=== PATIENT | male | born 1980 | race American Indian/Alaskan Native ===

== ENCOUNTER 2019-03-25 13:50 | Inpatient (IN) | payer OTHER ==
--- NOTE | 2019-03-25 14:16 | Event Note ---
ED Screening Note Date of service: 03/25/19 Time: 14:08 ED Screening Note: Reports bilateral feet swelling with pain. Left worst than rt. Denies sob or cp. Travelled via plane to [facility]. Denies any medical problem. Denies gout. Rt foot greater than left foot. Drank all day wednesday Pain 10/10 and becomes more intense with movement. Took advil. Pain throbbing Temperature elevated and mild tacchycardia Cellulitis vs gout/dvt This initial assessment/diagnostic orders/clinical plan/treatment(s) is/are subject to change based on patients health status, clinical progression and re- assessment by fellow clinical providers in the ED. Further treatment and workup at subsequent clinical providers discretion. Patient/guardian urged not to elope from the ED as their condition may be serious if not clinically assessed and managed. Initial orders include: U/S
[2019-03-25] MEDS ORDERED: SODIUM CHLORIDE 0.9% 1000 ML IV SOLN IV ONE (14:25)
[2019-03-25] MEDS ORDERED: CLINDAMYCIN 600 MG/50 mL 600 MG/50 ML BAG IV ONE (14:27)
[2019-03-25] MEDS ORDERED: KETOROLAC 30 MG/1 ML INJ IV ONE (14:27)
[2019-03-25] MEDS ORDERED: MORPHINE 4 MG/1 ML INJ IV ONE (14:27)
--- NOTE | 2019-03-25 16:40 | Emergency Department Report ---
<DANIELLE BOB - Last Filed: 03/25/19 16:37> ED Extremity Problem HPI - General Chief complaint: Extremity Injury, Lower Stated complaint: BOTH FEET SWOLLEN Time Seen by Provider: 03/25/19 14:07 Source: patient Mode of arrival: Wheelchair Limitations: No Limitations - History of Present Illness Initial comments: Patient is a 39-year-old male with no significant past medical history who is complaining of bilateral foot and leg pain. Patient states that 2 weeks ago he was in [facility] and was doing great and walking with new shoes. One week ago he started having bilateral, left greater than right, foot pain. Patient states that the feet began to swell and the swelling on the right foot is localize however the swelling to the left foot now includes the left ankle and left calf. Patient states is no chest pain shortness of breath. He has had chills. Patient denies any trauma. Severity scale (0 -10): 7 - Related Data Home Medications Medication Instructions Recorded Confirmed Last Taken No Known Home Medications [No 03/26/19 03/26/19 Unknown Reported Home Medications] Allergies Allergy/AdvReac Type Severity Reaction Status Date / Time Penicillins Allergy Unknown Verified 03/25/19 13:55 ED Review of Systems Comment: All other systems reviewed and negative ED Past Medical Hx - Past Medical History Previous Medical History?: Yes Hx Hypertension: Yes (no meds) Additional medical history: MVP - Surgical History Past Surgical History?: No - Social History Smoking Status: Current Every Day Smoker Substance Use Type: Alcohol - Medications Home Medications: Home Medications Medication Instructions Recorded Confirmed Last Taken Type No Known Home Medications [No 03/26/19 03/26/19 Unknown History Reported Home Medications] ED Physical Exam - General Limitations: No Limitations General appearance: alert, in no apparent distress - Head Head exam: Present: atraumatic, normocephalic - Eye Eye exam: Present: normal appearance - ENT ENT exam: Present: mucous membranes moist - Neck Neck exam: Present: normal inspection - Respiratory Respiratory exam: Present: normal lung sounds bilaterally. Absent: respiratory distress, wheezes, rales, rhonchi - Cardiovascular Cardiovascular Exam: Present: normal rhythm, tachycardia, normal heart sounds. Absent: systolic murmur, diastolic murmur, rubs, gallop - GI/Abdominal GI/Abdominal exam: Present: soft, normal bowel sounds. Absent: distended, tenderness, guarding, rebound - Rectal Rectal exam: Present: deferred - Extremities Exam Extremities exam: Present: normal inspection, other (patient with bilateral foot swelling. The swelling to the right foot is local lysed only to the dorsum of the foot. The swelling to the left foot extends into the left ankle as well as the left calf. He can move his ankle however there is a great deal of pain. Of the right ankle has full range of motion. The erythema is associated with a great deal of warmth and tenderness to palpation. There are no areas of fluctuance present.) - Back Exam Back exam: Present: normal inspection - Neurological Exam Neurological exam: Present: alert, oriented X3 - Psychiatric Psychiatric exam: Present: normal affect, normal mood - Skin Skin exam: Present: warm, dry, intact, normal color. Absent: rash ED Course - Reevaluation(s) Reevaluation #1: 03/25/19 16:40 Patient had sepsis protocol however there was a significant delay with drawing the patient's labs as the cook cashier food prep wasn't single coverage and did not know this patient was a septic patient. ED Disposition Clinical Impression: Leg swelling Cellulitis Qualifiers: Site of cellulitis: extremity Site of cellulitis of extremity: lower extremity Laterality: unspecified laterality Qualified Code(s): L03.119 - Cellulitis of unspecified part of limb Disposition: OP ADMIT IP TO THIS HOSP Condition: Fair <ALBARO PENALOZA - Last Filed: 03/26/19 13:48> ED Review of Systems ROS: Stated complaint: BOTH FEET SWOLLEN Other details as noted in HPI ED Course Vital Signs 03/25/19 03/25/19 03/25/19 13:55 20:01 20:49 Temperature 100.4 F H 101.4 F H 102.4 F H Pulse Rate 105 H 91 H Respiratory 18 18 Rate Blood Pressure 117/76 Blood Pressure 139/79 [Right] O2 Sat by Pulse 97 99 Oximetry 03/25/19 21:54 Temperature 99.9 F H Pulse Rate 87 Respiratory 18 Rate Blood Pressure Blood Pressure 114/68 [Right] O2 Sat by Pulse 100 Oximetry - Consultations Consultation #1: 03/25/19 18:[address] Gonsalez, hospitalist who states that LUNA Silverman will evaluate the pt, Dr. Gonsalez will admit to hospital and accept and resume care of patient ED Medical Decision Making - Lab Data Result diagrams: 03/26/19 04:37 03/26/19 04:37 Lab Results 03/25/19 03/25/19 03/25/19 Range/Units 16:59 17:58 17:58 WBC 8.1 (4.5-11.0) K/mm3 RBC 3.35 L (3.65-5.03) M/mm3 Hgb 11.0 L (11.8-15.2) gm/dl Hct 32.2 L (35.5-45.6) % MCV 96 H (84-94) fl MCH 33 H (28-32) pg MCHC 34 (32-34) % RDW 14.2 (13.2-15.2) % Plt Count 211 (140-440) K/mm3 Lymph % (Auto) 8.2 L (13.4-35.0) % [place] % (Auto) 10.8 H (0.0-7.3) % Eos % (Auto) 1.1 (0.0-4.3) % Baso % (Auto) 0.2 (0.0-1.8) % Lymph # 0.7 L (1.2-5.4) K/mm3 [place] # 0.9 H (0.0-0.8) K/mm3 Eos # 0.1 (0.0-0.4) K/mm3 Baso # 0.0 (0.0-0.1) K/mm3 Seg Neutrophils % 79.7 H (40.0-70.0) % Seg Neutrophils # 6.4 (1.8-7.7) K/mm3 Sodium (137-145) mmol/L Potassium (3.6-5.0) mmol/L Chloride (98-107) mmol/L Carbon Dioxide (22-30) mmol/L Anion Gap mmol/L BUN (9-20) mg/dL Creatinine (0.8-1.5) mg/dL Estimated GFR ml/min BUN/Creatinine Ratio % Glucose (75-100) mg/dL Lactic Acid 1.80 (0.7-2.0) mmol/L Uric Acid 3.2 L (3.5-7.6) mg/dL Calcium (8.4-10.2) mg/dL Total Bilirubin (0.1-1.2) mg/dL AST (5-40) units/L ALT (7-56) units/L Alkaline Phosphatase (35-129) units/L Total Protein (6.3-8.2) g/dL Albumin (3.9-5) g/dL Albumin/Globulin Ratio % 03/25/19 03/25/19 Range/Units 17:58 17:58 WBC (4.5-11.0) K/mm3 RBC (3.65-5.03) M/mm3 Hgb (11.8-15.2) gm/dl Hct (35.5-45.6) % MCV (84-94) fl MCH (28-32) pg MCHC (32-34) % RDW (13.2-15.2) % Plt Count (140-440) K/mm3 Lymph % (Auto) (13.4-35.0) % [place] % (Auto) (0.0-7.3) % Eos % (Auto) (0.0-4.3) % Baso % (Auto) (0.0-1.8) % Lymph # (1.2-5.4) K/mm3 [place] # (0.0-0.8) K/mm3 Eos # (0.0-0.4) K/mm3 Baso # (0.0-0.1) K/mm3 Seg Neutrophils % (40.0-70.0) % Seg Neutrophils # (1.8-7.7) K/mm3 Sodium 135 L (137-145) mmol/L Potassium 3.8 (3.6-5.0) mmol/L Chloride 100.7 (98-107) mmol/L Carbon Dioxide 22 (22-30) mmol/L Anion Gap 16 mmol/L BUN 9 (9-20) mg/dL Creatinine 0.7 L (0.8-1.5) mg/dL Estimated GFR > 60 ml/min BUN/Creatinine Ratio 13 % Glucose 94 (75-100) mg/dL Lactic Acid 1.10 (0.7-2.0) mmol/L Uric Acid (3.5-7.6) mg/dL Calcium 8.6 (8.4-10.2) mg/dL Total Bilirubin 1.00 (0.1-1.2) mg/dL AST 12 (5-40) units/L ALT 5 L (7-56) units/L Alkaline Phosphatase 62 (35-129) units/L Total Protein 7.1 (6.3-8.2) g/dL Albumin 3.6 L (3.9-5) g/dL Albumin/Globulin Ratio 1.0 % - Radiology Data Radiology results: report reviewed DUPLEX DOPPLER LOWER EXTREMITY VEINS, BILATERAL INDICATION: Bilateral foot swelling, redness and pain 1 week. Bilateral leg swelling. TECHNIQUE: Duplex doppler imaging was performed through the veins of both lower extremities using venous compression and other maneuvers. COMPARISON: None available. FINDINGS: Right Common femoral vein: Negative. Right Superficial femoral vein: Negative. Right Popliteal vein: Negative. Right Calf veins: Negative. Left Common femoral vein: Negative. Left Superficial femoral vein: Negative. Left Popliteal vein: Negative. Left Calf veins: Negative. Additional findings: There is no evidence of a popliteal cyst or other signif icant abnormality. IMPRESSION: No sonographic evidence for DVT in either lower extremity. Signer Name: Oni Haas MD Signed: 03/25/2019 5:56 PM Workstation Name: [id number] Transcribed By: RT Dictated By: Oni Haas MD Electronically Authenticated By: Oni Haas MD Signed Date/Time: 03/25/19 0628 - Medical Decision Making s/o by Dr. Mauricio Bob pending US results and admission US shows: No sonographic evidence for DVT in either lower extremity. labs are stable pt given IV abx pt admitted due to cellulitis, LLE>RLE spoke with Dr. Gonsalez, hospitalist who states that LUNA Silverman will evaluate the pt, Dr. Gonsalez will admit to hospital and accept and resume care of patient pt admitted to the hospital - Differential Diagnosis cellulitis, DVT, kidney dysfunction, liver dysfunction Critical care attestation.: If time is entered above; I have spent that time in minutes in the direct care of this critically ill patient, excluding procedure time. ED Disposition Is pt being admited?: Yes Does the pt Need Aspirin: No
--- NOTE | 2019-03-25 18:00 | Vascular Lab Report ---
DUPLEX DOPPLER LOWER EXTREMITY VEINS, BILATERAL INDICATION: Bilateral foot swelling, redness and pain 1 week. Bilateral leg swelling. TECHNIQUE: Duplex doppler imaging was performed through the veins of both lower extremities using venous odalys dolores and other maneuvers. COMPARISON: None available. FINDINGS: Right Common femoral vein: Negative. Right Superficial femoral vein: Negative. Right Popliteal vein: Negative. Right Calf veins: Negative. Left Common femoral vein: Negative. Left Superficial femoral vein: Negative. Left Popliteal vein: Negative. Left Calf veins: Negative. Additional findings: There is no evidence of a popliteal cyst or other significant abnormality. IMPRESSION: No sonographic evidence for DVT in either lower extremity. Signer Name: Oni Haas MD Signed: 03/25/2019 5:56 PM Workstation Name: [id number]
[2019-03-25 18:11] LABS: Basophils % (Auto) 0.2 % (0.0-1.8); Eosinophils # (Auto) 0.1 K/mm3 (0.0-0.4); Eosinophils % (Auto) 1.1 % (0.0-4.3); Hematocrit 32.2 % (35.5-45.6); Lymphocytes # (Auto) 0.7 K/mm3 (1.2-5.4); Lymphocytes % (Auto) 8.2 % (13.4-35.0); Mean Corpuscular HGB Conc 34 % (32-34); Mean Corpuscular Volume 96 fl (84-94); Monocytes # (Auto) 0.9 K/mm3 (0.0-0.8); Monocytes % (Auto) 10.8 % (0.0-7.3); Platelet Count 211 K/mm3 (140-440); Red Blood Count 3.35 M/mm3 (3.65-5.03); Red Cell Distribution Width 14.2 % (13.2-15.2)
[2019-03-25 18:28] LABS: Alanine Aminotransferase 5 units/L (7-56); Albumin 3.6 g/dL (3.9-5); BUN/Creatinine Ratio 13; Blood Urea Nitrogen 9 mg/dL (9-20); Calcium 8.6 mg/dL (8.4-10.2); Hemolysis Index 0
[2019-03-25] MEDS ORDERED: SODIUM CHLORIDE 0.9% 1000 ML 1,000 ML ONE (19:56)
[2019-03-25] MEDS ORDERED: VANCOMYCIN 1,500 MG in SODIUM CHLORIDE 0.9% 500 ML 500 ML IV ONE (20:00)
[2019-03-25] MEDS ORDERED: VANCOMYCIN PHARMACY TO DOSE IV SCH (20:00)
[2019-03-25] MEDS ORDERED: SODIUM CHLORIDE 0.9% 1000 ML 1,000 ML IV ONE (20:10)
[2019-03-25] MEDS ORDERED: NICOTINE 14 MG/24 HR PATCH TD PRN (20:11)
[2019-03-25] MEDS: ACETAMINOPHEN 325 MG TAB PO PRN (20:14)
[2019-03-25] MEDS ORDERED: ACETAMINOPHEN 325 MG TAB ONE (20:14)
[2019-03-25 20:22] LABS: Bilirubin,Urine NEG (Negative); Blood,Urine NEG (Negative); Color,Urine Amber (Yellow); Mucus,Urine 3+ /HPF
--- NOTE | 2019-03-25 20:33 | History and Physical Report ---
History of Present Illness Date of examination: 03/25/19 Date of admission: 03/25/19 19:08 Chief complaint: BLE edema, pain and warmth History of present illness: 39 -year-old -[place] male who is an ongoing smoker with no significant past medical history who presents to [facility] ED with complaints of redness to bilateral lower extremity, swelling, and pain. She states that he wants on a short 2 day vacation to [facility] last weekend. He purchased a new pair of [place] tennis shoes and wore them for the entire trip. Upon returning home, pt started experiencing bilateral foot pain and noticed that his feet were swollen. As the week progressed the swelling move up to his calf on the left foot, and it was accompanied by warmth and erythema. Pt also had erythema to right fourth and third toe and mild edema to right foot. He denies bug/ insect bite. he denies getting in beach water, and states that he only walked on the sand with shoes on to take pictures. Denies: n/v/d, fever, headache, CP, or SOB Past History Past Medical History: No medical history Past Surgical History: No surgical history Social history: lives with family (lives with parents), smoking (smokes 4-5 cigarettes per day) Family history: no significant family history Medications and Allergies Allergies Allergy/AdvReac Type Severity Reaction Status Date / Time Penicillins Allergy Unknown Verified 03/25/19 13:55 Active Meds: Active Medications Acetaminophen (Tylenol) 650 mg PO Q4H PRN PRN Reason: Pain MILD(1-3)/Fever >100.5/RODRIGUES Last Admin: 03/25/19 20:14 Dose: 650 mg Documented by: Acetaminophen/Hydrocodone Bitart ([place] 5/325) 2 each PO Q6H PRN PRN Reason: Pain, Moderate (4-6) Docusate Sodium (Colace) 100 mg PO BID ELKIN Enoxaparin Sodium (Enoxaparin) 40 mg SUB-Q QDAY ELKIN Hydromorphone HCl (Dilaudid) 0.5 mg IV Q3H PRN PRN Reason: Pain , Severe (7-10) Clindamycin HCl (Cleocin 600 Mg/50 Ml) 600 mg in 50 mls @ 100 mls/hr IV Q8HR ELKIN; Protocol Vancomycin HCl 1,500 mg/ (Sodium Chloride) 530 mls @ 353.333 mls/hr IV ONCE ONE Stop: 03/25/19 21:29 Vancomycin HCl (Vancomycin/Ns 1 Gm/250 Ml) 1 gm in 250 mls @ 166.667 mls/hr IV Q8HR ELKIN Sodium Chloride (Nacl 0.9% 1000 Ml) 1,000 mls @ 999 mls/hr IV BOLUS ONE Stop: 03/25/19 21:10 Last Admin: 03/25/19 20:17 Dose: 999 mls/hr Documented by: Nicotine (Habitrol) 14 mg TD QDAY PRN PRN Reason: smoking cessation Ondansetron HCl (Zofran) 4 mg IV Q6H PRN PRN Reason: Nausea And Vomiting Sodium Chloride (Sodium Chloride Flush Syringe 10 Ml) 10 ml IV BID ELKIN Sodium Chloride (Sodium Chloride Flush Syringe 10 Ml) 10 ml IV PRN PRN PRN Reason: LINE FLUSH Review of Systems All systems: negative Musculoskeletal: other (BLE edema L>R, Pain with activity and deep palpation) Integumentary: other (erythema and warmth to left foot and calf, erythema to right fourth and fifth toe, edema to right foot) Exam - Physical Exam Narrative exam: General appearance: Present: No acute distress, awake, alert and oriented 3, pleasant, well-developed, adult male - EENT Eyes: Present: PERRL, EOM intact ENT: hearing intact, normal dentition - Neck Neck: Present: supple, normal ROM - Respiratory Respiratory effort: Non-laboredwith diminished bases bilaterally - Cardiovascular Heart rate:105 (bpm) Rhythm:ST Heart Sounds: Present: S1, S2. - Extremities Extremities: no ischemia, pulses intact, erythema to right fourth fifth toe, erythema and edema to left calf and left foot - Peripheral Assessment Peripheral Pulses: within normal limits - Abdominal General gastrointestinal: soft, non-tender, normal bowel sounds, - Integumentary Integumentary: Present: warm, dry - Musculoskeletal Musculoskeletal: able to move all extremities, limited arm to bilateral lower extremity due to pain and swelling -Neurological Neurological: CN II-XII grossly intact - Psychiatric Psychiatric: cooperative - Constitutional Vitals: Temp Pulse Resp BP Pulse Ox 101.4 F H 91 H 18 139/79 99 03/25/19 20:01 03/25/19 20:01 03/25/19 20:01 03/25/19 20:01 03/25/19 20:01 Results - Labs CBC & Chem 7: 03/25/19 17:58 03/25/19 17:58 Labs: Laboratory Last Values WBC 8.1 K/mm3 (4.5-11.0) 03/25/19 17:58 RBC 3.35 M/mm3 (3.65-5.03) L 03/25/19 17:58 Hgb 11.0 gm/dl (11.8-15.2) L 03/25/19 17:58 Hct 32.2 % (35.5-45.6) L 03/25/19 17:58 MCV 96 fl (84-94) H 03/25/19 17:58 MCH 33 pg (28-32) H 03/25/19 17:58 MCHC 34 % (32-34) 03/25/19 17:58 RDW 14.2 % (13.2-15.2) 03/25/19 17:58 Plt Count 211 K/mm3 (140-440) 03/25/19 17:58 Lymph % (Auto) 8.2 % (13.4-35.0) L 03/25/19 17:58 [place] % (Auto) 10.8 % (0.0-7.3) H 03/25/19 17:58 Eos % (Auto) 1.1 % (0.0-4.3) 03/25/19 17:58 Baso % (Auto) 0.2 % (0.0-1.8) 03/25/19 17:58 Lymph # 0.7 K/mm3 (1.2-5.4) L 03/25/19 17:58 [place] # 0.9 K/mm3 (0.0-0.8) H 03/25/19 17:58 Eos # 0.1 K/mm3 (0.0-0.4) 03/25/19 17:58 Baso # 0.0 K/mm3 (0.0-0.1) 03/25/19 17:58 Seg Neutrophils % 79.7 % (40.0-70.0) H 03/25/19 17:58 Seg Neutrophils # 6.4 K/mm3 (1.8-7.7) 03/25/19 17:58 Sodium 135 mmol/L (137-145) L 03/25/19 17:58 Potassium 3.8 mmol/L (3.6-5.0) 03/25/19 17:58 Chloride 100.7 mmol/L (98-107) 03/25/19 17:58 Carbon Dioxide 22 mmol/L (22-30) 03/25/19 17:58 Anion Gap 16 mmol/L 03/25/19 17:58 BUN 9 mg/dL (9-20) 03/25/19 17:58 Creatinine 0.7 mg/dL (0.8-1.5) L 03/25/19 17:58 Estimated GFR > 60 ml/min 03/25/19 17:58 BUN/Creatinine Ratio 13 % 03/25/19 17:58 Glucose 94 mg/dL (75-100) 03/25/19 17:58 Lactic Acid 1.10 mmol/L (0.7-2.0) 03/25/19 17:58 Uric Acid 3.2 mg/dL (3.5-7.6) L 03/25/19 17:58 Calcium 8.6 mg/dL (8.4-10.2) 03/25/19 17:58 Total Bilirubin 1.00 mg/dL (0.1-1.2) 03/25/19 17:58 AST 12 units/L (5-40) 03/25/19 17:58 ALT 5 units/L (7-56) L 03/25/19 17:58 Alkaline Phosphatase 62 units/L (35-129) 03/25/19 17:58 Total Protein 7.1 g/dL (6.3-8.2) 03/25/19 17:58 Albumin 3.6 g/dL (3.9-5) L 03/25/19 17:58 Albumin/Globulin Ratio 1.0 % 03/25/19 17:58 Urine Color [place] (Yellow) 03/25/19 20:13 Urine Turbidity Slightly-cloudy (Clear) 03/25/19 20:13 Urine pH 5.0 (5.0-7.0) 03/25/19 20:13 Ur Specific [place] 1.020 (1.003-1.030) 03/25/19 20:13 Urine Protein 100 mg/dl mg/dL (Negative) 03/25/19 20:13 Urine Glucose (UA) Neg mg/dL (Negative) 03/25/19 20:13 Urine Ketones 20 mg/dL (Negative) 03/25/19 20:13 Urine Blood Neg (Negative) 03/25/19 20:13 Urine Nitrite Neg (Negative) 03/25/19 20:13 Urine Bilirubin Neg (Negative) 03/25/19 20:13 Urine Urobilinogen 2.0 mg/dL (<2.0) 03/25/19 20:13 Ur Leukocyte Esterase Tr (Negative) 03/25/19 20:13 Urine WBC (Auto) 30.0 /HPF (0.0-6.0) H 03/25/19 20:13 Urine RBC (Auto) 5.0 /HPF (0.0-6.0) 03/25/19 20:13 U Epithel Cells (Auto) < 1.0 /HPF (0-13.0) 03/25/19 20:13 Urine Mucus 3+ /HPF 03/25/19 20:13 - Imaging and Cardiology Imaging and Cardiology: BLE Venous Duplex: IMPRESSION: No sonographic evidence for DVT in either lower extremity. Assessment and Plan Assessment and plan: 39 -year-old -Sy[place] male who is an ongoing smoker with no significant past medical history who presents to [facility] ED with complaints of progressively worsening redness to bilateral lower extremity, swelling, and pain for the past week. Bilateral lower extremity cellulitis -Bilateral lower extremity Doppler negative -Bilateral lower extremity edema, erythema and warmth L>R -Denies bug/insect bite -C/o pain with activity -Cultures pending -On IV ABX -ID consulted UTI -Urine WBC >30 -Urine culture pending -On IV Abx Anemia -Hemoglobin on admission 11.0 -No S/S of active bleeding -Continue to monitor hemoglobin -Transfuse as needed Tobacco abuse -Smokes 4-5 cigarettes per day for the past 20 years -Counseled for cessation -Nicotine patch when necessary DVT PPX -On Lovenox Advance Directives: No VTE prophylaxis?: Chemical Plan of care discussed with patient/family: Yes
[2019-03-25] MEDS ORDERED: IBUPROFEN 800 MG TAB ONE (20:54)
[2019-03-25] MEDS ORDERED: IBUPROFEN 800 MG TAB PO ONE (20:55)
[2019-03-25] MEDS ORDERED: CLINDAMYCIN 600 MG/50 mL 600 MG/50 ML BAG IV SCH (22:00)
[2019-03-25] MEDS ORDERED: DOCUSATE SODIUM 100 MG CAP PO SCH (22:00)
[2019-03-25] MEDS: DOCUSATE SODIUM 100 MG CAP PO SCH (23:11)
[2019-03-25] MEDS: cefTRIAXone/NS 1 GM/50 ML 1 GM/50 ML BAG IV SCH (23:57)
[2019-03-26 05:02] LABS: BUN/Creatinine Ratio 15; Blood Urea Nitrogen 9 mg/dL (9-20); Calcium 8.3 mg/dL (8.4-10.2); Hemolysis Index 2
[2019-03-26 05:15] LABS: Basophils # (Auto) 0.1 K/mm3 (0.0-0.1); Basophils % (Auto) 0.7 % (0.0-1.8); Eosinophils # (Auto) 0.3 K/mm3 (0.0-0.4); Eosinophils % (Auto) 4.2 % (0.0-4.3); Hemoglobin 9.9 gm/dl (11.8-15.2); Lymphocytes % (Auto) 13.8 % (13.4-35.0); Mean Corpuscular HGB Conc 34 % (32-34); Mean Corpuscular Volume 95 fl (84-94); Monocytes # (Auto) 0.8 K/mm3 (0.0-0.8); Monocytes % (Auto) 11.4 % (0.0-7.3); Platelet Count 221 K/mm3 (140-440); Red Blood Count 3.04 M/mm3 (3.65-5.03); Red Cell Distribution Width 14.3 % (13.2-15.2)
[2019-03-26] MEDS: VANCOMYCIN/NS 1 GM/250 ML 1 GM/250 ML BAG IV SCH ×3 (05:48→22:03)
[2019-03-26] MEDS: HYDROcodone/ACETAMINOPHEN 5-325 MG TAB PO PRN ×3 (05:48→19:32)
--- NOTE | 2019-03-26 07:45 | Progress Note ---
Assessment and Plan Assessment and plan: Patient is a 39 -year-old -Togol[place] male who is an ongoing smoker with no significant past medical history who presents to [facility] ED with complaints of progressively worsening redness to bilateral lower extremity, swelling, and pain for the past week. He went on a short 2 day vacation to [place], [place] last weekend. He purchased a new pair of [employer] tennis shoes and wore them for the entire trip. Upon returning home, he developed bilateral foot pain and swelling. Bilateral lower extremity cellulitis -Bilateral lower extremity Doppler negative for DVT -Bilateral lower extremity edema, erythema and warmth L>R -Denies bug/insect bite -C/o pain with activity -Cultures pending -On IV ABX -ID consulted UTI -Urine WBC >30 -Urine culture pending -On IV Abx Anemia -Macrocytic -Hemoglobin on admission 11.0 -No S/S of active bleeding -Continue to monitor hemoglobin -Transfuse as needed Tobacco abuse -Smokes 4-5 cigarettes per day for the past 20 years -Counseled for cessation -Nicotine patch when necessary DVT PPX -On Lovenox History Interval history: Patient was seen and examined. Follow-up on current diagnosis of ble cellulitis. Overnight uneventful. Patient denies any chest pain, shortness breath, nausea/vomiting or severe headaches. Imaging, nursing note, chart, labs and old chart reviewed. Discussed with patient. Hospitalist Physical - Physical exam Narrative exam: Gen: WDWN, NAD, Awake, Alert, Orientated HEENT: NCAT, EOMI, PERRL, OP Clear Neck: supple, no adenopathy, no thyromegaly, no JVD CVS/Heart: RRR, normal S1S2, pulses present bilaterally Chest/Lungs: CTA B, Symmetrical chest expansion, good air entry bilaterally GI/Abdomen: soft, NTND, good bowel sounds, no guarding or rebound /Bladder: no suprapubic tenderness, no CVA or paraspinal tenderness Extermity/Skin: ble edema MSK: FROM x 4 Neuro: CN 2-12 grossly intact, no new focal deficits Psych: calm - Constitutional Vitals: Temp Pulse Resp BP Pulse Ox 98.9 F 76 16 113/74 98 03/26/19 05:06 03/26/19 05:06 03/26/19 06:48 03/26/19 05:06 03/26/19 05:06 Results - Labs CBC & Chem 7: 03/26/19 04:37 03/26/19 04:37 Labs: Laboratory Last Values WBC 7.4 K/mm3 (4.5-11.0) 03/26/19 04:37 RBC 3.04 M/mm3 (3.65-5.03) L 03/26/19 04:37 Hgb 9.9 gm/dl (11.8-15.2) L 03/26/19 04:37 Hct 29.0 % (35.5-45.6) L 03/26/19 04:37 MCV 95 fl (84-94) H 03/26/19 04:37 MCH 33 pg (28-32) H 03/26/19 04:37 MCHC 34 % (32-34) 03/26/19 04:37 RDW 14.3 % (13.2-15.2) 03/26/19 04:37 Plt Count 221 K/mm3 (140-440) 03/26/19 04:37 Lymph % (Auto) 13.8 % (13.4-35.0) 03/26/19 04:37 [place] % (Auto) 11.4 % (0.0-7.3) H 03/26/19 04:37 Eos % (Auto) 4.2 % (0.0-4.3) 03/26/19 04:37 Baso % (Auto) 0.7 % (0.0-1.8) 03/26/19 04:37 Lymph # 1.0 K/mm3 (1.2-5.4) L 03/26/19 04:37 [place] # 0.8 K/mm3 (0.0-0.8) 03/26/19 04:37 Eos # 0.3 K/mm3 (0.0-0.4) 03/26/19 04:37 Baso # 0.1 K/mm3 (0.0-0.1) 03/26/19 04:37 Seg Neutrophils % 69.9 % (40.0-70.0) 03/26/19 04:37 Seg Neutrophils # 5.2 K/mm3 (1.8-7.7) 03/26/19 04:37 Sodium 137 mmol/L (137-145) 03/26/19 04:37 Potassium 3.6 mmol/L (3.6-5.0) 03/26/19 04:37 Chloride 106.0 mmol/L (98-107) 03/26/19 04:37 Carbon Dioxide 24 mmol/L (22-30) 03/26/19 04:37 Anion Gap 11 mmol/L 03/26/19 04:37 BUN 9 mg/dL (9-20) 03/26/19 04:37 Creatinine 0.6 mg/dL (0.8-1.5) L 03/26/19 04:37 Estimated GFR > 60 ml/min 03/26/19 04:37 BUN/Creatinine Ratio 15 % 03/26/19 04:37 Glucose 109 mg/dL (75-100) H 03/26/19 04:37 Lactic Acid 0.70 mmol/L (0.7-2.0) 03/25/19 21:19 Uric Acid 3.2 mg/dL (3.5-7.6) L 03/25/19 17:58 Calcium 8.3 mg/dL (8.4-10.2) L 03/26/19 04:37 Total Bilirubin 1.00 mg/dL (0.1-1.2) 03/25/19 17:58 AST 12 units/L (5-40) 03/25/19 17:58 ALT 5 units/L (7-56) L 03/25/19 17:58 Alkaline Phosphatase 62 units/L (35-129) 03/25/19 17:58 Total Protein 7.1 g/dL (6.3-8.2) 03/25/19 17:58 Albumin 3.6 g/dL (3.9-5) L 03/25/19 17:58 Albumin/Globulin Ratio 1.0 % 03/25/19 17:58 Urine Color [place]indi (Yellow) 03/25/19 20:13 Urine Turbidity Slightly-cloudy (Clear) 03/25/19 20:13 Urine pH 5.0 (5.0-7.0) 03/25/19 20:13 Ur Specific [place] 1.020 (1.003-1.030) 03/25/19 20:13 Urine Protein 100 mg/dl mg/dL (Negative) 03/25/19 20:13 Urine Glucose (UA) Neg mg/dL (Negative) 03/25/19 20:13 Urine Ketones 20 mg/dL (Negative) 03/25/19 20:13 Urine Blood Neg (Negative) 03/25/19 20:13 Urine Nitrite Neg (Negative) 03/25/19 20:13 Urine Bilirubin Neg (Negative) 03/25/19 20:13 Urine Urobilinogen 2.0 mg/dL (<2.0) 03/25/19 20:13 Ur Leukocyte Esterase Tr (Negative) 03/25/19 20:13 Urine WBC (Auto) 30.0 /HPF (0.0-6.0) H 03/25/19 20:13 Urine RBC (Auto) 5.0 /HPF (0.0-6.0) 03/25/19 20:13 U Epithel Cells (Auto) < 1.0 /HPF (0-13.0) 03/25/19 20:13 Urine Mucus 3+ /HPF 03/25/19 20:13 Active Medications - Current Medications Current Medications: Generic Name Dose Route Start Last Admin Trade Name Freq PRN Reason Stop Dose Admin Acetaminophen 650 mg 03/25/19 19:33 03/25/19 20:14 Tylenol PO 650 mg Q4H PRN Administration Pain MILD(1-3)/Fever >100.5/RODRIGUES Acetaminophen/Hydrocodone Bitart 2 each 03/25/19 19:33 03/26/19 05:48 [place] 5/325 PO 2 each Q6H PRN Administration Pain, Moderate (4-6) Docusate Sodium 100 mg 03/25/19 22:00 03/25/19 23:11 Colace PO 100 mg BID ELKIN Administration Enoxaparin Sodium 40 mg 03/26/19 10:00 Enoxaparin SUB-Q QDAY ELKIN Hydromorphone HCl 0.5 mg 03/25/19 19:33 Dilaudid IV Q3H PRN Pain , Severe (7-10) Vancomycin HCl 1 gm in 250 mls @ 166.667 mls/hr 03/26/19 06:00 03/26/19 05:48 Vancomycin/Ns 1 Gm/250 Ml IV 166.667 mls/hr Q8HR ELKIN Administration Ceftriaxone Sodium 1 gm in 50 mls @ 100 mls/hr 03/25/19 22:00 03/25/19 23:57 Rocephin/Ns 1 Gm/50 Ml IV 100 mls/hr Q24H ELKIN Administration Protocol Nicotine 14 mg 03/25/19 20:11 Habitrol TD QDAY PRN smoking cessation Ondansetron HCl 4 mg 03/25/19 19:33 Zofran IV Q6H PRN Nausea And Vomiting Sodium Chloride 10 ml 03/25/19 22:00 03/25/19 23:11 Sodium Chloride Flush Syringe 10 Ml IV 10 ml BID ELKIN Administration Sodium Chloride 10 ml 03/25/19 19:33 Sodium Chloride Flush Syringe 10 Ml IV PRN PRN LINE FLUSH
--- NOTE | 2019-03-26 09:26 | XRay Report ---
LEFT FOOT 3 VIEWS INDICATION / CLINICAL INFORMATION: Left foot pain. COMPARISON: None available. FINDINGS: BONES / JOINT(S): There are mild degenerative changes involving the first metatarsophalangeal joint. There is no evidence of fracture, dislocation or destructive lesion. SOFT TISSUES: No significant abnormality. ADDITIONAL FINDINGS: None. IMPRESSION: No acute abnormality. Signer Name: Oni Haas MD Signed: 03/26/2019 9:22 AM Workstation Name: [id number]
--- NOTE | 2019-03-26 09:27 | XRay Report ---
LEFT ANKLE 3 VIEWS INDICATION / CLINICAL INFORMATION: Left ankle pain. COMPARISON: None available. FINDINGS: BONES / JOINT(S): No acute fracture or subluxation. No significant arthritis. SOFT TISSUES: There is moderate generalized soft tissue swelling, most prominent overlying the latera l malleolus. ADDITIONAL FINDINGS: None. IMPRESSION: Moderate soft tissue swelling, most prominent overlying the lateral malleolus. No acute o sseous abnormality. Signer Name: Oni Haas MD Signed: 03/26/2019 9:23 AM Workstation Name: [id number]
[2019-03-26] MEDS: ENOXAPARIN 40 MG/0.4 ML INJ SUB-Q SCH (10:05)
[2019-03-26] MEDS: DOCUSATE SODIUM 100 MG CAP PO SCH ×3 (10:05→22:03)
[2019-03-26] MEDS: ACETAMINOPHEN 325 MG TAB PO PRN ×2 (17:38→23:05)
[2019-03-26] MEDS: cefTRIAXone/NS 1 GM/50 ML 1 GM/50 ML BAG IV SCH (22:03)
[2019-03-27] MEDS: HYDROmorphone 1 MG/1 ML INJ IV PRN ×2 (00:43→06:33)
[2019-03-27] MEDS: ONDANSETRON 4 MG/2 ML INJ IV PRN ×2 (00:43→10:35)
[2019-03-27] MEDS: VANCOMYCIN/NS 1 GM/250 ML 1 GM/250 ML BAG IV SCH ×3 (05:59→21:26)
--- NOTE | 2019-03-27 06:55 | Progress Note ---
Assessment and Plan Assessment and plan: Patient is a 39 -year-old -[place] man with a history of tobacco dependency who [facility] with severe bilateral foot pains and swelling, especially left foot. He went on a short 2 day vacation to [place], [place] last weekend. He purchased a new pair of Nike tennis shoes and wore them for the entire trip. Upon returning home, he developed bilateral foot pain and swelling. Bilateral lower extremity cellulitis -Bilateral lower extremity Doppler negative for DVT -XRay ankle and foot negative for fracture -Bilateral lower extremity edema, erythema and warmth L foot >R foot -Denies bug/insect bite -C/o pain with activity -Cultures pending -On IV ABX -ID consulted, await evaluation and recommendation -?Disseminated migratory arthralgia, he denies penile lesion or discharge. UTI -Urine WBC >30 -Urine culture pending -On IV Abx Anemia -Macrocytic -Hemoglobin on admission 11.0 -No S/S of active bleeding -Continue to monitor hemoglobin -Transfuse as needed Tobacco abuse -Smokes 4-5 cigarettes per day for the past 20 years -Counseled for cessation -Nicotine patch when necessary DVT PPX -On Lovenox D/W ID Dr. Jeri Mcmillan History Interval history: Patient was seen and examined. Follow-up on current diagnosis of ble cellulitis, especially left foot. Overnight uneventful except for FEVER. Patient denies any chest pain, shortness breath, nausea/vomiting or severe headaches. Imaging, nursing note, chart, labs and old chart reviewed. Discussed with patient. Hospitalist Physical - Physical exam Narrative exam: Gen: WDWN, NAD, Awake, Alert, Orientated HEENT: NCAT, EOMI, PERRL, OP Clear Neck: supple, no adenopathy, no thyromegaly, no JVD CVS/Heart: RRR, normal S1S2, pulses present bilaterally Chest/Lungs: CTA B, Symmetrical chest expansion, good air entry bilaterally GI/Abdomen: soft, NTND, good bowel sounds, no guarding or rebound /Bladder: no suprapubic tenderness, no CVA or paraspinal tenderness Extermity/Skin: ble edema, left foot near 5th digit is red, lateral ankle has erythema, redness, warmth and tenderness also. left index finger is sausage like, right foot is swollen but not as bad as left MSK: FROM x 4 Neuro: CN 2-12 grossly intact, no new focal deficits Psych: calm - Constitutional Vitals: Temp Pulse Resp BP Pulse Ox 98.7 F 79 17 113/73 97 03/27/19 04:37 03/27/19 04:37 03/27/19 06:33 03/27/19 04:37 03/27/19 04:37 Results - Labs CBC & Chem 7: 03/26/19 04:37 03/26/19 04:37 Labs: Laboratory Last Values WBC 7.4 K/mm3 (4.5-11.0) 03/26/19 04:37 RBC 3.04 M/mm3 (3.65-5.03) L 03/26/19 04:37 Hgb 9.9 gm/dl (11.8-15.2) L 03/26/19 04:37 Hct 29.0 % (35.5-45.6) L 03/26/19 04:37 MCV 95 fl (84-94) H 03/26/19 04:37 MCH 33 pg (28-32) H 03/26/19 04:37 MCHC 34 % (32-34) 03/26/19 04:37 RDW 14.3 % (13.2-15.2) 03/26/19 04:37 Plt Count 221 K/mm3 (140-440) 03/26/19 04:37 Lymph % (Auto) 13.8 % (13.4-35.0) 03/26/19 04:37 [place] % (Auto) 11.4 % (0.0-7.3) H 03/26/19 04:37 Eos % (Auto) 4.2 % (0.0-4.3) 03/26/19 04:37 Baso % (Auto) 0.7 % (0.0-1.8) 03/26/19 04:37 Lymph # 1.0 K/mm3 (1.2-5.4) L 03/26/19 04:37 [place] # 0.8 K/mm3 (0.0-0.8) 03/26/19 04:37 Eos # 0.3 K/mm3 (0.0-0.4) 03/26/19 04:37 Baso # 0.1 K/mm3 (0.0-0.1) 03/26/19 04:37 Seg Neutrophils % 69.9 % (40.0-70.0) 03/26/19 04:37 Seg Neutrophils # 5.2 K/mm3 (1.8-7.7) 03/26/19 04:37 Sodium 137 mmol/L (137-145) 03/26/19 04:37 Potassium 3.6 mmol/L (3.6-5.0) 03/26/19 04:37 Chloride 106.0 mmol/L (98-107) 03/26/19 04:37 Carbon Dioxide 24 mmol/L (22-30) 03/26/19 04:37 Anion Gap 11 mmol/L 03/26/19 04:37 BUN 9 mg/dL (9-20) 03/26/19 04:37 Creatinine 0.6 mg/dL (0.8-1.5) L 03/26/19 04:37 Estimated GFR > 60 ml/min 03/26/19 04:37 BUN/Creatinine Ratio 15 % 03/26/19 04:37 Glucose 109 mg/dL (75-100) H 03/26/19 04:37 Lactic Acid 0.70 mmol/L (0.7-2.0) 03/25/19 21:19 Uric Acid 3.2 mg/dL (3.5-7.6) L 03/25/19 17:58 Calcium 8.3 mg/dL (8.4-10.2) L 03/26/19 04:37 Total Bilirubin 1.00 mg/dL (0.1-1.2) 03/25/19 17:58 AST 12 units/L (5-40) 03/25/19 17:58 ALT 5 units/L (7-56) L 03/25/19 17:58 Alkaline Phosphatase 62 units/L (35-129) 03/25/19 17:58 Total Protein 7.1 g/dL (6.3-8.2) 03/25/19 17:58 Albumin 3.6 g/dL (3.9-5) L 03/25/19 17:58 Albumin/Globulin Ratio 1.0 % 03/25/19 17:58 Urine Color [place]indi (Yellow) 03/25/19 20:13 Urine Turbidity Slightly-cloudy (Clear) 03/25/19 20:13 Urine pH 5.0 (5.0-7.0) 03/25/19 20:13 Ur Specific [place] 1.020 (1.003-1.030) 03/25/19 20:13 Urine Protein 100 mg/dl mg/dL (Negative) 03/25/19 20:13 Urine Glucose (UA) Neg mg/dL (Negative) 03/25/19 20:13 Urine Ketones 20 mg/dL (Negative) 03/25/19 20:13 Urine Blood Neg (Negative) 03/25/19 20:13 Urine Nitrite Neg (Negative) 03/25/19 20:13 Urine Bilirubin Neg (Negative) 03/25/19 20:13 Urine Urobilinogen 2.0 mg/dL (<2.0) 03/25/19 20:13 Ur Leukocyte Esterase Tr (Negative) 03/25/19 20:13 Urine WBC (Auto) 30.0 /HPF (0.0-6.0) H 03/25/19 20:13 Urine RBC (Auto) 5.0 /HPF (0.0-6.0) 03/25/19 20:13 U Epithel Cells (Auto) < 1.0 /HPF (0-13.0) 03/25/19 20:13 Urine Mucus 3+ /HPF 03/25/19 20:13 Active Medications - Current Medications Current Medications: Generic Name Dose Route Start Last Admin Trade Name Freq PRN Reason Stop Dose Admin Acetaminophen 650 mg 03/25/19 19:33 03/26/19 23:05 Tylenol PO 650 mg Q4H PRN Administration Pain MILD(1-3)/Fever >100.5/RODRIGUES Acetaminophen/Hydrocodone Bitart 2 each 03/25/19 19:33 03/26/19 19:32 [place] 5/325 PO 2 each Q6H PRN Administration Pain, Moderate (4-6) Docusate Sodium 100 mg 03/25/19 22:00 03/26/19 22:03 Colace PO 100 mg BID ELKIN Administration Enoxaparin Sodium 40 mg 03/26/19 10:00 03/26/19 10:05 Enoxaparin SUB-Q 40 mg QDAY ELKIN Administration Hydromorphone HCl 0.5 mg 03/25/19 19:33 03/27/19 06:33 Dilaudid IV 0.5 mg Q3H PRN Administration Pain , Severe (7-10) Vancomycin HCl 1 gm in 250 mls @ 166.667 mls/hr 03/26/19 06:00 03/27/19 05:59 Vancomycin/Ns 1 Gm/250 Ml IV 166.667 mls/hr Q8HR ELKIN Administration Ceftriaxone Sodium 1 gm in 50 mls @ 100 mls/hr 03/25/19 22:00 03/26/19 22:03 Rocephin/Ns 1 Gm/50 Ml IV 100 mls/hr Q24H ELKIN Administration Protocol Nicotine 14 mg 03/25/19 20:11 Habitrol TD QDAY PRN smoking cessation Ondansetron HCl 4 mg 03/25/19 19:33 03/27/19 00:43 Zofran IV 4 mg Q6H PRN Administration Nausea And Vomiting Sodium Chloride 10 ml 03/25/19 22:00 03/26/19 22:03 Sodium Chloride Flush Syringe 10 Ml IV 10 ml BID ELKIN Administration Sodium Chloride 10 ml 03/25/19 19:33 Sodium Chloride Flush Syringe 10 Ml IV PRN PRN LINE FLUSH
[2019-03-27] MEDS: HYDROcodone/ACETAMINOPHEN 5-325 MG TAB PO PRN (09:09)
[2019-03-27] MEDS: ENOXAPARIN 40 MG/0.4 ML INJ SUB-Q SCH (09:12)
[2019-03-27] MEDS: DOCUSATE SODIUM 100 MG CAP PO SCH ×2 (09:14→21:21)
--- NOTE | 2019-03-27 14:01 | Consultation ---
History of Present Illness - Reason for Consult Consult date: 03/27/19 - History of Present Illness 39 yo M no PMHx presented with complaints of bilateral LE swelling, pain, and redness which began after travelling to [place] last weekend. After returning home from the short trip he noticed his current symptoms with pain and swelling. Over time his symptoms did not improve, and the swelling progressed and began to affect his L calf. He notes that while in [facility] he did not get in the ocean, but did walk on the sand. Denies any bug bites in the meantime. Otherwise he denies fevers, sweats, chills. Febrile on admission to 102.1 with a normal white count. He is currently receiving vancomycin and ceftriaxone. Blood cultures and urine cultures are negative thus far. Roxanne personally reviewed: Foot xray - No acute abnormality Ankle x-ray - soft tissue swelling over the malleolus. Review of Systems: Bold if positive; otherwise negative General: fevers, chills, rigors HEENT: visual disturbance, diplopia, eye pain Respiratory: cough, sputum, hemoptysis, shortness of breath Cardiovascular: chest pain, syncope Gastrointestinal: nausea, vomiting, diarrhea, abdominal pain Genitourinary: dysuria, hematuria, flank pain Musculoskeletal: neck pain, back pain, joint pain, edema Neurologic: headaches, seizures Hematologic: easy bruising or bleeding Endocrine: night sweats, acute weight loss Skin: rash, jaundice, redness Psychiatric: suicidal, homicidal ideation Past History Past Medical History: No medical history Past Surgical History: No surgical history Social history: lives with family (lives with parents), smoking (smokes 4-5 cigarettes per day) Family history: no significant family history Medications and Allergies Allergies Allergy/AdvReac Type Severity Reaction Status Date / Time Penicillins Allergy Unknown Verified 03/25/19 13:55 Home Medications Medication Instructions Recorded Confirmed Last Taken Type No Known Home Medications [No 03/26/19 03/26/19 Unknown History Reported Home Medications] Active Meds: Active Medications Acetaminophen (Tylenol) 650 mg PO Q4H PRN PRN Reason: Pain MILD(1-3)/Fever >100.5/RODRIGUES Last Admin: 03/26/19 23:05 Dose: 650 mg Documented by: Acetaminophen/Hydrocodone Bitart ([place] 5/325) 2 each PO Q6H PRN PRN Reason: Pain, Moderate (4-6) Last Admin: 03/27/19 09:09 Dose: 2 each Documented by: Docusate Sodium (Colace) 100 mg PO BID [facility] Last Admin: 03/27/19 09:14 Dose: Not Given Documented by: Enoxaparin Sodium (Enoxaparin) 40 mg SUB-Q QDAY [facility] Last Admin: 03/27/19 09:12 Dose: 40 mg Documented by: Hydromorphone HCl (Dilaudid) 0.5 mg IV Q3H PRN PRN Reason: Pain , Severe (7-10) Last Admin: 03/27/19 06:33 Dose: 0.5 mg Documented by: Vancomycin HCl (Vancomycin/Ns 1 Gm/250 Ml) 1 gm in 250 mls @ 166.667 mls/hr IV Q8HR [facility] Last Admin: 03/27/19 05:59 Dose: 166.667 mls/hr Documented by: Ceftriaxone Sodium (Rocephin/Ns 1 Gm/50 Ml) 1 gm in 50 mls @ 100 mls/hr IV Q24H [facility]; Protocol Last Admin: 03/26/19 22:03 Dose: 100 mls/hr Documented by: Nicotine (Habitrol) 14 mg TD QDAY PRN PRN Reason: smoking cessation Ondansetron HCl (Zofran) 4 mg IV Q6H PRN PRN Reason: Nausea And Vomiting Last Admin: 03/27/19 10:35 Dose: 4 mg Documented by: Sodium Chloride (Sodium Chloride Flush Syringe 10 Ml) 10 ml IV BID [facility] Last Admin: 03/27/19 09:14 Dose: 10 ml Documented by: Sodium Chloride (Sodium Chloride Flush Syringe 10 Ml) 10 ml IV PRN PRN PRN Reason: LINE FLUSH Physical Examination - Physical Exam Narrative exam: Constitutional: Alert, cooperative. No acute distress Head, Ears, Nose: Normocephalic, atraumatic. External ears, nose normal Eyes: Conjunctivae/corneas clear. No icterus. No ptosis. Neck: Supple, no meningeal signs Oral: dentition fair, no thrush Cardiovascular: S1, S2 normal. Respiratory: Good air entry, clear to auscultation bilaterally GI: Soft, non-tender; bowel sounds normal. No peritoneal signs. Musculoskeletal: b/l LE edema to the high ankle, L > R. Redness, tenderness over L medial malleolus and R 5th toe. painful active and passive ROM of L ankle. Skin: No rash or abscess Hem/Lymphatic: No palpable cervical or supraclavicular nodes. No lymphangitis Psych: Mood ok. Affect normal Neurological: Awake, alert, oriented. No gross abnormality - Constitutional Vitals: Vital Signs Temp Pulse Resp BP Pulse Ox 102.1 F H 85 24 122/73 95 03/27/19 11:58 03/27/19 11:58 03/27/19 11:58 03/27/19 11:58 03/27/19 11:58 Temperature -Last 24 Hours Temperature 102.1 F Temperature 98.7 F Temperature 102.1 F Temperature 102.9 F Results - Labs CBC & Chem 7: 03/26/19 04:37 03/26/19 04:37 Assessment and Plan Cultures: 03/25 BCx - NGTD 03/25 UCx - negative A/P: 39 yo M no PMHx admitted with bilateral edema and LE pain after visiting the beach. 1. SIRS possible sepsis - present on admission with fevers and tachycardia. Like ly secondary to foot/ankle inflammatory process, which may be infective. Will order MRI of the L ankle which is significantly worse and has severe pain on active and passive ROM. Concern for septic arthritis. Continue vancomycin, increase ceftriaxone dose, and added doxycyline. Despite not going in the water, some concern for more atypical pathogen. Recs: - Continue vancomycin dosed per pharmacy, goal trough 15-20. - increase ceftriaxone to 2g q24h - will add doxycycline 100mg bid PO - MRI of the left ankle. Thank you for the consult, we will continue to follow. Rome Mcmillan MD [facility] ([facility]) M: [phone] O: [phone] F: [phone]
[2019-03-27] MEDS: ACETAMINOPHEN 325 MG TAB PO PRN (15:01)
[2019-03-27] MEDS: DOXYCYCLINE 100 MG CAPSULE PO SCH (21:21)
[2019-03-27] MEDS: cefTRIAXone/NS 2 GM/100 ML 2 GM/100 ML BAG IV SCH (23:05)
[2019-03-28] MEDS: ACETAMINOPHEN 325 MG TAB PO PRN (00:20)
[2019-03-28 06:21] LABS: BUN/Creatinine Ratio 11; Blood Urea Nitrogen 9 mg/dL (9-20); Calcium 8.5 mg/dL (8.4-10.2); Hemolysis Index 1
[2019-03-28] MEDS: VANCOMYCIN/NS 1 GM/250 ML 1 GM/250 ML BAG IV SCH (07:06)
--- NOTE | 2019-03-28 07:12 | Progress Note ---
Assessment and Plan Assessment and plan: 39-year-old man who presents to the hospital with bilateral foot and leg pain that began after walking in new shoes. Vital signs reviewed. Max temp was 102.1, was tachycardic Labs reviewed potassium 3.5 Lower extremity Dopplers negative for DVT polyarthritis, bilat ankle, bilat hands, SIRS Awaiting MRI lower extremity, ID input appreciated, continue empiric antibiotics, blood cultures negative x2 after 48 hours Patient has some form of inflammation in both feet, the etiology is unclear at this time, awaiting MRI -check HUMBERTO, RF, CRP, start empiric steroids and nsaids, ortho consult for joint tap, bilat hand xrays UTI ruled out, urine culture negative Macrocytic anemia Check folic acid, B12 and iron binding profile Tobacco abuse/dependence Smoking cessation counseling performed for 10 minutes, nicotine patches when necessary DVT prophylaxis with Lovenox History Interval history: Patient had high fevers overnight Continues to complain of bilateral foot pain and swelling, complaining of bilateral pain in his hands fingers wrist Review of systems Constitutional: Complaining of joint pains in his feet joint pains CVS: No chest pain, no orthopnea, no pedal edema GI: No abdominal pain, no diarrhea, no vomiting, no constipation Respiratory: No shortness of breath, no wheezing, no coughing Hospitalist Physical - Physical exam Narrative exam: General.: Appears well, no distress, nontoxic HEENT: Moist mucous membranes, extraocular muscles intact, no lymphadenopathy Neck: supple Cardiac: S1-S2 heard Lungs: clear to auscultation bilaterally Abdomen: soft , nontender, nondistended, bowel sounds positive Extremities: b/l LE edema to ankle, L > R. Redness, tenderness over L medial malleolus and R 5th toe. painful active and passive ROM of L ankle. Bilateral swelling of hands, left index finger is swollen and red, right wrist is swollen and tender, decreased range of motion Skin: no rash or lesions Neurologic: no gross focal deficits Psych: calm, and cooperative - Constitutional Vitals: Temp Pulse Resp BP Pulse Ox 100.5 F H 85 18 127/79 100 03/28/19 05:50 03/28/19 05:50 03/28/19 05:50 03/28/19 05:50 03/28/19 05:50 Results - Labs CBC & Chem 7: 03/28/19 05:44 03/28/19 05:44 Labs: Laboratory Last Values WBC 7.4 K/mm3 (4.5-11.0) 03/26/19 04:37 RBC 3.04 M/mm3 (3.65-5.03) L 03/26/19 04:37 Hgb 9.9 gm/dl (11.8-15.2) L 03/26/19 04:37 Hct 29.0 % (35.5-45.6) L 03/26/19 04:37 MCV 95 fl (84-94) H 03/26/19 04:37 MCH 33 pg (28-32) H 03/26/19 04:37 MCHC 34 % (32-34) 03/26/19 04:37 RDW 14.3 % (13.2-15.2) 03/26/19 04:37 Plt Count 221 K/mm3 (140-440) 03/26/19 04:37 Lymph % (Auto) 13.8 % (13.4-35.0) 03/26/19 04:37 [place] % (Auto) 11.4 % (0.0-7.3) H 03/26/19 04:37 Eos % (Auto) 4.2 % (0.0-4.3) 03/26/19 04:37 Baso % (Auto) 0.7 % (0.0-1.8) 03/26/19 04:37 Lymph # 1.0 K/mm3 (1.2-5.4) L 03/26/19 04:37 [place] # 0.8 K/mm3 (0.0-0.8) 03/26/19 04:37 Eos # 0.3 K/mm3 (0.0-0.4) 03/26/19 04:37 Baso # 0.1 K/mm3 (0.0-0.1) 03/26/19 04:37 Seg Neutrophils % 69.9 % (40.0-70.0) 03/26/19 04:37 Seg Neutrophils # 5.2 K/mm3 (1.8-7.7) 03/26/19 04:37 Sodium 139 mmol/L (137-145) 03/28/19 05:44 Potassium 3.5 mmol/L (3.6-5.0) L 03/28/19 05:44 Chloride 99.5 mmol/L (98-107) 03/28/19 05:44 Carbon Dioxide 25 mmol/L (22-30) 03/28/19 05:44 Anion Gap 18 mmol/L 03/28/19 05:44 BUN 9 mg/dL (9-20) 03/28/19 05:44 Creatinine 0.8 mg/dL (0.8-1.5) 03/28/19 05:44 Estimated GFR > 60 ml/min 03/28/19 05:44 BUN/Creatinine Ratio 11 % 03/28/19 05:44 Glucose 111 mg/dL (75-100) H 03/28/19 05:44 Lactic Acid 0.70 mmol/L (0.7-2.0) 03/25/19 21:19 Uric Acid 3.2 mg/dL (3.5-7.6) L 03/25/19 17:58 Calcium 8.5 mg/dL (8.4-10.2) 03/28/19 05:44 Total Bilirubin 1.00 mg/dL (0.1-1.2) 03/25/19 17:58 AST 12 units/L (5-40) 03/25/19 17:58 ALT 5 units/L (7-56) L 03/25/19 17:58 Alkaline Phosphatase 62 units/L (35-129) 03/25/19 17:58 Total Protein 7.1 g/dL (6.3-8.2) 03/25/19 17:58 Albumin 3.6 g/dL (3.9-5) L 03/25/19 17:58 Albumin/Globulin Ratio 1.0 % 03/25/19 17:58 Urine Color [place] (Yellow) 03/25/19 20:13 Urine Turbidity Slightly-cloudy (Clear) 03/25/19 20:13 Urine pH 5.0 (5.0-7.0) 03/25/19 20:13 Ur Specific [place] 1.020 (1.003-1.030) 03/25/19 20:13 Urine Protein 100 mg/dl mg/dL (Negative) 03/25/19 20:13 Urine Glucose (UA) Neg mg/dL (Negative) 03/25/19 20:13 Urine Ketones 20 mg/dL (Negative) 03/25/19 20:13 Urine Blood Neg (Negative) 03/25/19 20:13 Urine Nitrite Neg (Negative) 03/25/19 20:13 Urine Bilirubin Neg (Negative) 03/25/19 20:13 Urine Urobilinogen 2.0 mg/dL (<2.0) 03/25/19 20:13 Ur Leukocyte Esterase Tr (Negative) 03/25/19 20:13 Urine WBC (Auto) 30.0 /HPF (0.0-6.0) H 03/25/19 20:13 Urine RBC (Auto) 5.0 /HPF (0.0-6.0) 03/25/19 20:13 U Epithel Cells (Auto) < 1.0 /HPF (0-13.0) 03/25/19 20:13 Urine Mucus 3+ /HPF 03/25/19 20:13 Vancomycin Trough 7.2 ug/mL (5.0-20.0) 03/28/19 05:44 Active Medications - Current Medications Current Medications: Generic Name Dose Route Start Last Admin Trade Name Freq PRN Reason Stop Dose Admin Acetaminophen 650 mg 03/25/19 19:33 03/28/19 00:20 Tylenol PO 650 mg Q4H PRN Administration Pain MILD(1-3)/Fever >100.5/RODRIGUES Acetaminophen/Hydrocodone Bitart 2 each 03/25/19 19:33 03/27/19 09:09 [place] 5/325 PO 2 each Q6H PRN Administration Pain, Moderate (4-6) Docusate Sodium 100 mg 03/25/19 22:00 03/27/19 21:21 Colace PO 100 mg BID ELKIN Administration Doxycycline Hyclate 100 mg 03/27/19 22:00 03/27/19 21:21 Vibramycin PO 100 mg BID ELKIN Administration Enoxaparin Sodium 40 mg 03/26/19 10:00 03/27/19 09:12 Enoxaparin SUB-Q 40 mg QDAY ELKIN Administration Hydromorphone HCl 0.5 mg 03/25/19 19:33 03/27/19 06:33 Dilaudid IV 0.5 mg Q3H PRN Administration Pain , Severe (7-10) Vancomycin HCl 1 gm in 250 mls @ 166.667 mls/hr 03/26/19 06:00 03/28/19 07:06 Vancomycin/Ns 1 Gm/250 Ml IV 166.667 mls/hr Q8HR ELKIN Administration Ceftriaxone Sodium 2 gm in 100 mls @ 200 mls/hr 03/27/19 22:00 03/27/19 23:05 Rocephin/Ns 2 Gm/100 Ml IV 200 mls/hr Q24H ELKIN Administration Protocol Nicotine 14 mg 03/25/19 20:11 Habitrol TD QDAY PRN smoking cessation Ondansetron HCl 4 mg 03/25/19 19:33 03/27/19 10:35 Zofran IV 4 mg Q6H PRN Administration Nausea And Vomiting Potassium Chloride 40 meq 03/28/19 07:09 [place] PO 03/28/19 07:10 ONCE ONE Sodium Chloride 10 ml 03/25/19 22:00 03/27/19 21:27 Sodium Chloride Flush Syringe 10 Ml IV 10 ml BID ELKIN Administration Sodium Chloride 10 ml 03/25/19 19:33 Sodium Chloride Flush Syringe 10 Ml IV PRN PRN LINE FLUSH
[2019-03-28 07:25] LABS: Hematocrit 28.8 % (35.5-45.6); Hemoglobin 9.8 gm/dl (11.8-15.2); Mean Corpuscular HGB Conc 34 % (32-34); Mean Corpuscular Volume 95 fl (84-94); Platelet Count 312 K/mm3 (140-440); Red Blood Count 3.03 M/mm3 (3.65-5.03); Red Cell Distribution Width 14.3 % (13.2-15.2)
[2019-03-28 08:43] LABS: % Iron Saturation 5.97 %
[2019-03-28] MEDS ORDERED: POTASSIUM CHLORIDE ER 20 MEQ TAB PO ONE (09:00)
--- NOTE | 2019-03-28 11:24 | Progress Note ---
Assessment and Plan Cultures: 03/25 BCx - NGTD 03/25 UCx - negative A/P: 39 yo M no PMHx admitted with bilateral edema and LE pain after visiting the beach. 1. SIRS possible sepsis - present on admission with fevers and tachycardia. Likely secondary to foot/ankle inflammatory process, which may be infective. Will order MRI of the L ankle which is significantly worse and has severe pain on active and passive ROM. Concern for septic arthritis. Continue vancomycin, increase ceftriaxone dose, and added doxycyline. 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 Will also check gonorrhea to r/o disseminated gonococcosis. Recommend ortho consult for possible arthrocentesis. MRI with swelling but no acute focus of infection. Recs: - Continue vancomycin dosed per pharmacy, goal trough 15-20. - continue ceftriaxone to 2g q24h - Continue doxycycline 100mg bid PO - agree with HUMBERTO and autoimmune titres ordered by primary. - recommend orthopedic consultation d/w Dr. Cook Thank you for the consult, we will continue to follow. Rome Mcmillan MD [facility] ([facility]) M: [phone] O: [phone] F: [phone] Subjective Date of service: 03/28/19 Interval history: Notes persistent L ankle, R index finger, and L wrist swelling and pain. no improvement. MRI without acute focus of infection. Objective - Exam Narrative Exam: Constitutional: Alert, cooperative. No acute distress Head, Ears, Nose: Normocephalic, atraumatic. External ears, nose normal Eyes: Conjunctivae/corneas clear. No icterus. No ptosis. Neck: Supple, no meningeal signs Oral: dentition fair, no thrush Cardiovascular: S1, S2 normal. Respiratory: Good air entry, clear to auscultation bilaterally GI: Soft, non-tender; bowel sounds normal. No peritoneal signs. Musculoskeletal: b/l LE edema to the high ankle, L > R. Redness, tenderness over L medial malleolus and R 5th toe. painful active and passive ROM of L ankle. Skin: No rash or abscess. L 2nd finger swelling and tenderness, R wrist the same. Hem/Lymphatic: No palpable cervical or supraclavicular nodes. No lymphangitis Psych: Mood ok. Affect normal Neurological: Awake, alert, oriented. No gross abnormality - Constitutional Vitals: Vital Signs Temp Pulse Resp BP Pulse Ox 100.5 F H 85 18 127/79 100 03/28/19 05:50 03/28/19 05:50 03/28/19 05:50 03/28/19 05:50 03/28/19 05:50 Temperature -Last 24 Hours Temperature 100.5 F Temperature 101.8 F Temperature 101.6 F Temperature 102.1 F - Labs CBC & Chem 7: 03/28/19 05:44 03/28/19 05:44 Labs: Abnormal lab results 03/28/19 03/28/19 03/28/19 Range/Units 05:44 05:44 07:21 WBC 12.9 H (4.5-11.0) K/mm3 RBC 3.03 L (3.65-5.03) M/mm3 Hgb 9.8 L (11.8-15.2) gm/dl Hct 28.8 L (35.5-45.6) % MCV 95 H (84-94) fl Potassium 3.5 L (3.6-5.0) mmol/L Glucose 111 H (75-100) mg/dL Iron 8 L (49-181) ug/dL TIBC 134 L (250-450) mcg/dL Transferrin 131 L (180-329) mg/dl C-Reactive Protein (0.00-1.30) mg/dL 03/28/19 Range/Units 07:21 WBC (4.5-11.0) K/mm3 RBC (3.65-5.03) M/mm3 Hgb (11.8-15.2) gm/dl Hct (35.5-45.6) % MCV (84-94) fl Potassium (3.6-5.0) mmol/L Glucose (75-100) mg/dL Iron (49-181) ug/dL TIBC (250-450) mcg/dL Transferrin (180-329) mg/dl C-Reactive Protein 35.70 H (0.00-1.30) mg/dL
[2019-03-28] MEDS: HYDROcodone/ACETAMINOPHEN 5-325 MG TAB PO PRN (12:11)
--- NOTE | 2019-03-28 12:11 | Magnetic Resonance Report ---
MR LE joint LT wo con INDICATION: Septic arthritis. TECHNIQUE: Multiplanar, multisequence MR images were obtained. COMPARISON: Left foot and ankle x-ray 03/26/2019 FINDINGS: This study was performed without IV contrast. There is abnormal intermediate to hypointense T1 and in termediate T2 signal intensity within the proximal third of fifth metatarsal as well as the distal fi bula without overlying soft tissue ulcer. No discrete fracture line is seen. Moderate diffuse subcuta neous edema is seen within the left ankle extending into the dorsal aspect of foot. Moderate left ank le effusion is present. The deltoid and lateral ankle ligamentous complexes appear intact. The visualized ankle tendons appea r unremarkable. IMPRESSION: 1. Nonspecific mild bone marrow edema within proximal fifth metatarsal and lateral malleolus could re present bone contusions versus less likely early osteomyelitis given absence of adjacent ulcer. 2. Moderate left ankle effusion. 3. Moderate subcutaneous edema within left foot and ankle. No drainable fluid collection or abscess. Signer Name: Troy Arambula MD Signed: 03/28/2019 12:06 PM Workstation Name: [id number]
[2019-03-28] MEDS: DOCUSATE SODIUM 100 MG CAP PO SCH ×2 (12:12→21:58)
[2019-03-28] MEDS: DOXYCYCLINE 100 MG CAPSULE PO SCH ×2 (12:12→21:59)
[2019-03-28] MEDS: ENOXAPARIN 40 MG/0.4 ML INJ SUB-Q SCH (12:13)
[2019-03-28] MEDS: VANCOMYCIN 1,500 MG in SODIUM CHLORIDE 0.9% 500 ML 500 ML IV SCH ×2 (14:45→22:49)
--- NOTE | 2019-03-28 16:49 | XRay Report ---
RIGHT HAND 3 VIEWS INDICATION / CLINICAL INFORMATION: swelling and pain. COMPARISON: None available. FINDINGS: No fracture or other acute abnormality. No significant degenerative change. Signer Name: Quintin Garcia MD Signed: 03/28/2019 4:44 PM Workstation Name: [id number]
[2019-03-28] MEDS: predniSONE 20 MG TAB PO SCH (16:53)
[2019-03-28] MEDS: INDOMETHACIN 25 MG CAP PO SCH ×2 (16:53→21:58)
[2019-03-28] MEDS: cefTRIAXone/NS 2 GM/100 ML 2 GM/100 ML BAG IV SCH (21:58)
[2019-03-29] MEDS: VANCOMYCIN 1,500 MG in SODIUM CHLORIDE 0.9% 500 ML 500 ML IV SCH ×3 (05:21→22:14)
[2019-03-29 06:15] LABS: BUN/Creatinine Ratio 20; Blood Urea Nitrogen 16 mg/dL (9-20); Calcium 8.7 mg/dL (8.4-10.2); Hemolysis Index 0
[2019-03-29 08:33] LABS: Basophils % (Auto) 0.3 % (0.0-1.8); Eosinophils % (Auto) 0.1 % (0.0-4.3); Hematocrit 30.6 % (35.5-45.6); Hemoglobin 10.2 gm/dl (11.8-15.2); Lymphocytes # (Auto) 0.5 K/mm3 (1.2-5.4); Lymphocytes % (Auto) 3.7 % (13.4-35.0); Mean Corpuscular HGB Conc 33 % (32-34); Mean Corpuscular Volume 95 fl (84-94); Monocytes # (Auto) 0.9 K/mm3 (0.0-0.8); Monocytes % (Auto) 6.7 % (0.0-7.3); Platelet Count 354 K/mm3 (140-440); Red Blood Count 3.21 M/mm3 (3.65-5.03); Red Cell Distribution Width 14.1 % (13.2-15.2)
--- NOTE | 2019-03-29 09:53 | Progress Note ---
Assessment and Plan Assessment and plan: 39-year-old man who presents to the hospital with bilateral foot and leg pain that began after walking in new shoes. Vital signs reviewed. no fevers Lower extremity Dopplers negative for DVT polyarthritis, bilat ankle, bilat hands, SIRS Awaiting MRI lower extremity, ID input appreciated, continue empiric antibiotics, blood cultures negative x2 after 48 hours Patient has some form of inflammation in both feet, the etiology is unclear at this time, awaiting MRI -check HUMBERTO, RF, CRP, start empiric steroids and nsaids, ortho consult for joint tap, bilat hand xrays UTI ruled out, urine culture negative Macrocytic anemia Check folic acid, B12 and iron binding profile Tobacco abuse/dependence Smoking cessation counseling performed for 10 minutes, nicotine patches when necessary DVT prophylaxis with Lovenox History Interval history: Patient had high fevers overnight Continues to complain of bilateral foot pain and swelling, complaining of bilateral pain in his hands fingers wrist Review of systems Constitutional: Complaining of joint pains in his feet joint pains CVS: No chest pain, no orthopnea, no pedal edema GI: No abdominal pain, no diarrhea, no vomiting, no constipation Respiratory: No shortness of breath, no wheezing, no coughing Hospitalist Physical - Physical exam Narrative exam: General.: Appears well, no distress, nontoxic HEENT: Moist mucous membranes, extraocular muscles intact, no lymphadenopathy Neck: supple Cardiac: S1-S2 heard Lungs: clear to auscultation bilaterally Abdomen: soft , nontender, nondistended, bowel sounds positive Extremities: b/l LE edema to ankle, L > R. Redness, tenderness over L medial malleolus and R 5th toe. painful active and passive ROM of L ankle. Bilateral swelling of hands, left index finger is swollen and red, right wrist is swollen and tender, decreased range of motion Skin: no rash or lesions Neurologic: no gross focal deficits Psych: calm, and cooperative - Constitutional Vitals: Temp Pulse Resp BP Pulse Ox 97.5 F L 63 18 112/68 99 03/29/19 05:35 03/29/19 05:35 03/29/19 05:35 03/29/19 05:35 03/29/19 05:35 Results - Labs CBC & Chem 7: 03/29/19 05:29 03/29/19 05:29 Labs: Laboratory Last Values WBC 13.3 K/mm3 (4.5-11.0) H 03/29/19 05:29 RBC 3.21 M/mm3 (3.65-5.03) L 03/29/19 05:29 Hgb 10.2 gm/dl (11.8-15.2) L 03/29/19 05:29 Hct 30.6 % (35.5-45.6) L 03/29/19 05:29 MCV 95 fl (84-94) H 03/29/19 05:29 MCH 32 pg (28-32) 03/29/19 05:29 MCHC 33 % (32-34) 03/29/19 05:29 RDW 14.1 % (13.2-15.2) 03/29/19 05:29 Plt Count 354 K/mm3 (140-440) 03/29/19 05:29 Lymph % (Auto) 3.7 % (13.4-35.0) L 03/29/19 05:29 [place] % (Auto) 6.7 % (0.0-7.3) 03/29/19 05:29 Eos % (Auto) 0.1 % (0.0-4.3) 03/29/19 05:29 Baso % (Auto) 0.3 % (0.0-1.8) 03/29/19 05:29 Lymph # 0.5 K/mm3 (1.2-5.4) L 03/29/19 05:29 [place] # 0.9 K/mm3 (0.0-0.8) H 03/29/19 05:29 Eos # 0.0 K/mm3 (0.0-0.4) 03/29/19 05:29 Baso # 0.0 K/mm3 (0.0-0.1) 03/29/19 05:29 Seg Neutrophils % 89.2 % (40.0-70.0) H 03/29/19 05:29 Seg Neutrophils # 11.8 K/mm3 (1.8-7.7) H 03/29/19 05:29 Sodium 137 mmol/L (137-145) 03/29/19 05:29 Potassium 4.2 mmol/L (3.6-5.0) 03/29/19 05:29 Chloride 100.3 mmol/L (98-107) 03/29/19 05:29 Carbon Dioxide 25 mmol/L (22-30) 03/29/19 05:29 Anion Gap 16 mmol/L 03/29/19 05:29 BUN 16 mg/dL (9-20) 03/29/19 05:29 Creatinine 0.8 mg/dL (0.8-1.5) 03/29/19 05:29 Estimated GFR > 60 ml/min 03/29/19 05:29 BUN/Creatinine Ratio 20 % 03/29/19 05:29 Glucose 134 mg/dL (75-100) H 03/29/19 05:29 Lactic Acid 0.70 mmol/L (0.7-2.0) 03/25/19 21:19 Uric Acid 3.2 mg/dL (3.5-7.6) L 03/25/19 17:58 Calcium 8.7 mg/dL (8.4-10.2) 03/29/19 05:29 Magnesium 2.00 mg/dL (1.7-2.3) 03/29/19 05:29 Iron 8 ug/dL (49-181) L 03/28/19 07:21 TIBC 134 mcg/dL (250-450) L 03/28/19 07:21 % Saturation 5.97 % 03/28/19 07:21 Transferrin 131 mg/dl (180-329) L 03/28/19 07:21 Ferritin 370.5 ng/mL (13.0-400.0) 03/28/19 07:21 Total Bilirubin 1.00 mg/dL (0.1-1.2) 03/25/19 17:58 AST 12 units/L (5-40) 03/25/19 17:58 ALT 5 units/L (7-56) L 03/25/19 17:58 Alkaline Phosphatase 62 units/L (35-129) 03/25/19 17:58 C-Reactive Protein 35.70 mg/dL (0.00-1.30) H 03/28/19 07:21 Total Protein 7.1 g/dL (6.3-8.2) 03/25/19 17:58 Albumin 3.6 g/dL (3.9-5) L 03/25/19 17:58 Albumin/Globulin Ratio 1.0 % 03/25/19 17:58 Vitamin B12 334.5 pg/mL (211-911) 03/28/19 07:21 Urine Color [place] (Yellow) 03/25/19 20:13 Urine Turbidity Slightly-cloudy (Clear) 03/25/19 20:13 Urine pH 5.0 (5.0-7.0) 03/25/19 20:13 Ur Specific [place] 1.020 (1.003-1.030) 03/25/19 20:13 Urine Protein 100 mg/dl mg/dL (Negative) 03/25/19 20:13 Urine Glucose (UA) Neg mg/dL (Negative) 03/25/19 20:13 Urine Ketones 20 mg/dL (Negative) 03/25/19 20:13 Urine Blood Neg (Negative) 03/25/19 20:13 Urine Nitrite Neg (Negative) 03/25/19 20:13 Urine Bilirubin Neg (Negative) 03/25/19 20:13 Urine Urobilinogen 2.0 mg/dL (<2.0) 03/25/19 20:13 Ur Leukocyte Esterase Tr (Negative) 03/25/19 20:13 Urine WBC (Auto) 30.0 /HPF (0.0-6.0) H 03/25/19 20:13 Urine RBC (Auto) 5.0 /HPF (0.0-6.0) 03/25/19 20:13 U Epithel Cells (Auto) < 1.0 /HPF (0-13.0) 03/25/19 20:13 Urine Mucus 3+ /HPF 03/25/19 20:13 Vancomycin Trough 7.2 ug/mL (5.0-20.0) 03/28/19 05:44 Rheumatoid Factor 12 IU/ml (0-13) 03/28/19 07:21 Active Medications - Current Medications Current Medications: Generic Name Dose Route Start Last Admin Trade Name Freq PRN Reason Stop Dose Admin Acetaminophen 650 mg 03/25/19 19:33 03/28/19 00:20 Tylenol PO 650 mg Q4H PRN Administration Pain MILD(1-3)/Fever >100.5/RODRIGUES Acetaminophen/Hydrocodone Bitart 2 each 03/25/19 19:33 03/28/19 12:11 [place] 5/325 PO 2 each Q6H PRN Administration Pain, Moderate (4-6) Docusate Sodium 100 mg 03/25/19 22:00 03/28/19 21:58 Colace PO 100 mg BID ELKIN Administration Doxycycline Hyclate 100 mg 03/27/19 22:00 03/28/19 21:59 Vibramycin PO 100 mg BID ELKIN Administration Enoxaparin Sodium 40 mg 03/26/19 10:00 03/28/19 12:13 Enoxaparin SUB-Q 40 mg QDAY ELKIN Administration Hydromorphone HCl 0.5 mg 03/25/19 19:33 03/27/19 06:33 Dilaudid IV 0.5 mg Q3H PRN Administration Pain , Severe (7-10) Ceftriaxone Sodium 2 gm in 100 mls @ 200 mls/hr 03/27/19 22:00 03/28/19 21:58 Rocephin/Ns 2 Gm/100 Ml IV 200 mls/hr Q24H ELKIN Administration Protocol Vancomycin HCl 1,500 mg/ 530 mls @ 333.333 mls/hr 03/28/19 14:00 03/29/19 05:21 Sodium Chloride IV 333.333 mls/hr Q8HR ELKIN Administration Indomethacin 50 mg 03/28/19 16:00 03/28/19 21:58 Indocin PO 50 mg Q12HR ELKIN Administration Nicotine 14 mg 03/25/19 20:11 Habitrol TD QDAY PRN smoking cessation Ondansetron HCl 4 mg 03/25/19 19:33 03/27/19 10:35 Zofran IV 4 mg Q6H PRN Administration Nausea And Vomiting Prednisone 40 mg 03/28/19 16:00 03/28/19 16:53 Deltasone PO 40 mg QDAY ELKIN Administration Sodium Chloride 10 ml 03/25/19 22:00 03/28/19 22:01 Sodium Chloride Flush Syringe 10 Ml IV 10 ml BID ELKIN Administration Sodium Chloride 10 ml 03/25/19 19:33 Sodium Chloride Flush Syringe 10 Ml IV PRN PRN LINE FLUSH
[2019-03-29] MEDS: DOCUSATE SODIUM 100 MG CAP PO SCH ×2 (10:25→21:25)
[2019-03-29] MEDS: predniSONE 20 MG TAB PO SCH (10:25)
[2019-03-29] MEDS: INDOMETHACIN 25 MG CAP PO SCH (10:26)
[2019-03-29] MEDS: DOXYCYCLINE 100 MG CAPSULE PO SCH ×2 (10:26→21:25)
[2019-03-29] MEDS: ENOXAPARIN 40 MG/0.4 ML INJ SUB-Q SCH (10:26)
--- NOTE | 2019-03-29 12:42 | Progress Note ---
Assessment and Plan Cultures: 03/25 BCx - NGTD 03/25 UCx - negative A/P: 39 yo M no PMHx admitted with bilateral edema and LE pain after visiting the beach. 1. SIRS possible sepsis - present on admission with fevers and tachycardia. Likely secondary to foot/ankle inflammatory process, which may be infective. Will order MRI of the L ankle which is significantly worse and has severe pain on active and passive ROM. Concern for septic arthritis. Continue vancomycin, increase ceftriaxone dose, and added doxycyline. 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 Will also check gonorrhea to r/o disseminated gonococcosis. Recommend ortho consult for possible arthrocentesis. MRI with swelling but no acute focus of infection. Worsening leukocytosis today Recs: - Continue vancomycin dosed per pharmacy, goal trough 15-20. - continue ceftriaxone to 2g q24h - Continue doxycycline 100mg bid PO - agree with HUMBERTO and autoimmune titres ordered by primary. RF WNL - recommend orthopedic consultation Thank you for the consult, we will continue to follow. Rome Mcmillan MD [facility] ([facility]) M: [phone] O: [phone] F: [phone] Subjective Date of service: 03/29/19 Interval history: Notes persistent L ankle, R index finger, and L wrist swelling and pain. no improvement. Objective - Exam Narrative Exam: Constitutional: Alert, cooperative. No acute distress Head, Ears, Nose: Normocephalic, atraumatic. External ears, nose normal Eyes: Conjunctivae/corneas clear. No icterus. No ptosis. Neck: Supple, no meningeal signs Oral: dentition fair, no thrush Cardiovascular: S1, S2 normal. Respiratory: Good air entry, clear to auscultation bilaterally GI: Soft, non-tender; bowel sounds normal. No peritoneal signs. Musculoskeletal: b/l LE edema to the high ankle, L > R. Redness, tenderness over L medial malleolus and R 5th toe. painful active and passive ROM of L ankle. Skin: No rash or abscess. L 2nd finger swelling and tenderness, R wrist the same. Hem/Lymphatic: No palpable cervical or supraclavicular nodes. No lymphangitis Psych: Mood ok. Affect normal Neurological: Awake, alert, oriented. No gross abnormality - Constitutional Vitals: Vital Signs Temp Pulse Resp BP Pulse Ox 98.5 F 68 20 136/81 99 03/29/19 12:04 03/29/19 12:04 03/29/19 12:04 03/29/19 12:04 03/29/19 12:04 Temperature -Last 24 Hours Temperature 98.5 F Temperature 97.5 F Temperature 97.8 F Temperature 99.8 F Temperature 100 F - Labs CBC & Chem 7: 03/29/19 05:29 03/29/19 05:29 Labs: Abnormal lab results 03/29/19 03/29/19 Range/Units 05:29 05:29 WBC 13.3 H (4.5-11.0) K/mm3 RBC 3.21 L (3.65-5.03) M/mm3 Hgb 10.2 L (11.8-15.2) gm/dl Hct 30.6 L (35.5-45.6) % MCV 95 H (84-94) fl Lymph % (Auto) 3.7 L (13.4-35.0) % Lymph # 0.5 L (1.2-5.4) K/mm3 [place] # 0.9 H (0.0-0.8) K/mm3 Seg Neutrophils % 89.2 H (40.0-70.0) % Seg Neutrophils # 11.8 H (1.8-7.7) K/mm3 Glucose 134 H (75-100) mg/dL
[2019-03-29] MEDS ORDERED: HYDROcodone/ACETAMINOPHEN 10-325MG TAB PO PRN (14:36)
[2019-03-29] MEDS ORDERED: HYDROmorphone 1 MG/1 ML INJ IV PRN (14:37)
[2019-03-29] MEDS ORDERED: methylPREDNISolone Sod Suc 1,000 MG in SODIUM CHLORIDE 0.9% 250ML 250 ML IV ONE (16:00)
--- NOTE | 2019-03-29 16:51 | Consultation ---
History of Present Illness - [facility] Consult date: 03/29/19 Consult reason: joint pain History of present illness: Patient is a 39-year-old male who came in complaining of left ankle pain and swelling for the last couple weeks patient states she went on vacation recently and was doing a lot of walking and standing using a new pair of tennis shoes shortly after was patient began having weakness descries as plantar fasciitis pain patient states he took [id number] anti-inflammatory medicines with little to no relief he was seen in the emergency room and [facility] and admitted for further care.. He denies diabetes or previous history of similar problems in the past..Since admission he has developed other areas of redness,pain, and decrease ROM... Past History Past Medical History: No medical history Past Surgical History: No surgical history Social history: lives with family (lives with parents), smoking (smokes 4-5 cigarettes per day) Family history: no significant family history Medications and Allergies Allergies Allergy/AdvReac Type Severity Reaction Status Date / Time Penicillins Allergy Unknown Verified 03/25/19 13:55 Home Medications Medication Instructions Recorded Confirmed Last Taken Type No Known Home Medications [No 03/26/19 03/26/19 Unknown History Reported Home Medications] Active Meds: Active Medications Acetaminophen (Tylenol) 650 mg PO Q4H PRN PRN Reason: Pain MILD(1-3)/Fever >100.5/RODRIGUES Last Admin: 03/28/19 00:20 Dose: 650 mg Documented by: Acetaminophen/Hydrocodone Bitart (Amber 10/325) 2 each PO Q6H PRN PRN Reason: Pain, Moderate (4-6) Docusate Sodium (Colace) 100 mg PO BID [facility] Last Admin: 03/29/19 10:25 Dose: 100 mg Documented by: Doxycycline Hyclate (Vibramycin) 100 mg PO BID [facility] Last Admin: 03/29/19 10:26 Dose: 100 mg Documented by: Enoxaparin Sodium (Enoxaparin) 40 mg SUB-Q QDAY [facility] Last Admin: 03/29/19 10:26 Dose: 40 mg Documented by: Hydromorphone HCl (Dilaudid) 1 mg IV Q3H PRN PRN Reason: Pain , Severe (7-10) Ceftriaxone Sodium (Rocephin/Ns 2 Gm/100 Ml) 2 gm in 100 mls @ 200 mls/hr IV Q24H [facility]; Protocol Last Admin: 03/28/19 21:58 Dose: 200 mls/hr Documented by: Vancomycin HCl 1,500 mg/ (Sodium Chloride) 530 mls @ 333.333 mls/hr IV Q8HR [facility] Last Admin: 03/29/19 15:15 Dose: 333.333 mls/hr Documented by: Methylprednisolone Sodium Succinate 1,000 mg/ Sodium Chloride 250 mls @ 250 mls/hr IV ONCE ONE Stop: 03/29/19 16:59 Methylprednisolone Sodium Succinate 500 mg/ Sodium Chloride 100 mls @ 200 mls/hr IV Q24HR [facility] Nicotine (Habitrol) 14 mg TD QDAY PRN PRN Reason: smoking cessation Ondansetron HCl (Zofran) 4 mg IV Q6H PRN PRN Reason: Nausea And Vomiting Last Admin: 03/27/19 10:35 Dose: 4 mg Documented by: Pantoprazole Sodium (Protonix) 40 mg PO QDAY [facility] Sodium Chloride (Sodium Chloride Flush Syringe 10 Ml) 10 ml IV BID [facility] Last Admin: 03/29/19 10:28 Dose: 10 ml Documented by: Sodium Chloride (Sodium Chloride Flush Syringe 10 Ml) 10 ml IV PRN PRN PRN Reason: LINE FLUSH Physical Examination - Physical exam Narrative exam: left LE - moderate swelling, + erythema at dorsal surface ankle, decreased active/passive ROM, tender at joint line, distal n/v intact right wrist - moderate swelling dorsal surface, warm to touch, decreased active ROM Eyes: PERRL ENT: Positive: clear oral mucosa Respiratory effort: normal Respiratory: bilateral: CTA Rhythm: regular Heart Sounds: Positive: S1 & S2 General gastrointestinal: Positive: soft, non-tender, non-distended, normal bowel sounds Integumentary: clear, warm, dry Neurologic: Positive: CNII-XII intact, moves all extremities, gait normal. Negative: focal deficits Assessment and Plan multiple joint pain and swelling, mri scan no significant joint effusion at ankle r/o connective tissue disorder discussed aspirating joint with patient and family members, doubt if we'll get anything useful for C/S since there's no significant effusion present...
[2019-03-29] MEDS: PANTOPRAZOLE 40 MG TAB PO SCH (17:38)
[2019-03-29] MEDS: cefTRIAXone/NS 2 GM/100 ML 2 GM/100 ML BAG IV SCH (21:26)
[2019-03-30] MEDS: ONDANSETRON 4 MG/2 ML INJ IV PRN ×3 (07:32→21:25)
[2019-03-30] MEDS ORDERED: methylPREDNISolone Sod Suc 500 MG in SODIUM CHLORIDE 0.9% 100 ML IV SCH (10:00)
[2019-03-30] MEDS: ENOXAPARIN 40 MG/0.4 ML INJ SUB-Q SCH (10:52)
[2019-03-30] MEDS: DOCUSATE SODIUM 100 MG CAP PO SCH ×2 (10:53→21:25)
[2019-03-30] MEDS: DOXYCYCLINE 100 MG CAPSULE PO SCH (10:53)
[2019-03-30] MEDS: PANTOPRAZOLE 40 MG TAB PO SCH (10:53)
--- NOTE | 2019-03-30 11:02 | Progress Note ---
Assessment and Plan Cultures: 03/25 BCx - NGTD 03/25 UCx - negative A/P: 39 yo M no PMHx admitted with bilateral edema and LE pain after visiting the beach. 1. SIRS possible sepsis - present on admission with fevers and tachycardia. Likely secondary to foot/ankle inflammatory process, which may be infective. Will order MRI of the L ankle which is significantly worse and has severe pain on active and passive ROM. Concern for septic arthritis. Continue vancomycin, increase ceftriaxone dose, and added doxycyline. 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 Will also check gonorrhea to r/o disseminated gonococcosis. Recommend ortho consult for possible arthrocentesis. MRI with swelling but no acute focus of infection. Believe this is more likely to be a connective tissue disease than infection. Will start de-escalating antibiotics today. Recs: - Continue vancomycin dosed per pharmacy, goal trough 15-20. - stopped ceftriaxone to 2g q24h - Stopped doxycycline 100mg bid PO - agree with HUMBERTO and autoimmune titres ordered by primary. RF WNL - leukocytosis likely secondary to steroids. Thank you for the consult, we will continue to follow. Rome Mcmillan MD [facility] ([facility] M: [phone] O: [phone] F: [phone] Subjective Date of service: 03/30/19 Interval history: Notes persistent L ankle, R index finger, and L wrist swelling and pain. no improvement. Objective - Exam Narrative Exam: Constitutional: Alert, cooperative. No acute distress Head, Ears, Nose: Normocephalic, atraumatic. External ears, nose normal Eyes: Conjunctivae/corneas clear. No icterus. No ptosis. Neck: Supple, no meningeal signs Oral: dentition fair, no thrush Cardiovascular: S1, S2 normal. Respiratory: Good air entry, clear to auscultation bilaterally GI: Soft, non-tender; bowel sounds normal. No peritoneal signs. Musculoskeletal: b/l LE edema to the high ankle, L > R. Redness, tenderness over L medial malleolus and R 5th toe. painful active and passive ROM of L ankle. Skin: No rash or abscess. L 2nd finger swelling and tenderness, R wrist the same. Hem/Lymphatic: No palpable cervical or supraclavicular nodes. No lymphangitis Psych: Mood ok. Affect normal Neurological: Awake, alert, oriented. No gross abnormality - Constitutional Vitals: Vital Signs Temp Pulse Resp BP Pulse Ox 98.8 F 73 20 134/77 98 03/30/19 04:21 03/30/19 04:21 03/30/19 04:21 03/30/19 04:21 03/30/19 04:21 Temperature -Last 24 Hours Temperature 98.8 F Temperature 98.9 F Temperature 99.0 F Temperature 98.5 F - Labs CBC & Chem 7: 03/29/19 05:29 03/29/19 05:29
[2019-03-30] MEDS: VANCOMYCIN 1,500 MG in SODIUM CHLORIDE 0.9% 500 ML 500 ML IV SCH ×2 (12:22→21:25)
[2019-03-30] MEDS ORDERED: methylPREDNISolone Sod Suc 1,000 MG in SODIUM CHLORIDE 0.9% 100 ML IV SCH (14:45)
--- NOTE | 2019-03-30 14:45 | Progress Note ---
Assessment and Plan Assessment and plan: 39-year-old man who presents to the hospital with bilateral foot and leg pain that began after walking in new shoes. Vital signs reviewed. no fevers Lower extremity Dopplers negative for DVT polyarthritis, bilat ankle, bilat hands, SIRS Awaiting MRI lower extremity, ID input appreciated, continue empiric antibiotics, blood cultures negative x2 after 48 hours Patient has some form of inflammation in both feet, the etiology is unclear at this time, awaiting MRI -fup HUMBERTO, RF neg, CRP high, cont high dose IV steroids UTI ruled out, urine culture negative Macrocytic anemia Check folic acid, B12 and iron binding profile Tobacco abuse/dependence Smoking cessation counseling performed for 10 minutes, nicotine patches when necessary DVT prophylaxis with Lovenox History Interval history: Fevers have now resolved Continues to complain of bilateral foot pain and swelling, complaining of bilateral pain in his hands fingers wrist, states that he has less pain and swelling his joints today than he did yesterday Review of systems Constitutional: Complaining of joint pains in his feet joint pains CVS: No chest pain, no orthopnea, no pedal edema GI: No abdominal pain, no diarrhea, no vomiting, no constipation Respiratory: No shortness of breath, no wheezing, no coughing Hospitalist Physical - Physical exam Narrative exam: General.: Appears well, no distress, nontoxic HEENT: Moist mucous membranes, extraocular muscles intact, no lymphadenopathy Neck: supple Cardiac: S1-S2 heard Lungs: clear to auscultation bilaterally Abdomen: soft , nontender, nondistended, bowel sounds positive Extremities: b/l LE edema to ankle, L > R. Redness, tenderness over L medial malleolus and R 5th toe. painful active and passive ROM of L ankle. Bilateral swelling of hands, left index finger is swollen and red, right wrist is swollen and tender, decreased range of motion, interval improvement of swell ing and stiffness Skin: no rash or lesions Neurologic: no gross focal deficits Psych: calm, and cooperative - Constitutional Vitals: Temp Pulse Resp BP Pulse Ox 98.7 F 70 18 118/70 97 03/30/19 12:00 03/30/19 12:00 03/30/19 12:00 03/30/19 12:00 03/30/19 12:00 Results - Labs CBC & Chem 7: 03/29/19 05:29 03/29/19 05:29 Labs: Laboratory Last Values WBC 13.3 K/mm3 (4.5-11.0) H 03/29/19 05:29 RBC 3.21 M/mm3 (3.65-5.03) L 03/29/19 05:29 Hgb 10.2 gm/dl (11.8-15.2) L 03/29/19 05:29 Hct 30.6 % (35.5-45.6) L 03/29/19 05:29 MCV 95 fl (84-94) H 03/29/19 05:29 MCH 32 pg (28-32) 03/29/19 05:29 MCHC 33 % (32-34) 03/29/19 05:29 RDW 14.1 % (13.2-15.2) 03/29/19 05:29 Plt Count 354 K/mm3 (140-440) 03/29/19 05:29 Lymph % (Auto) 3.7 % (13.4-35.0) L 03/29/19 05:29 Hinds % (Auto) 6.7 % (0.0-7.3) 03/29/19 05:29 Eos % (Auto) 0.1 % (0.0-4.3) 03/29/19 05:29 Baso % (Auto) 0.3 % (0.0-1.8) 03/29/19 05:29 Lymph # 0.5 K/mm3 (1.2-5.4) L 03/29/19 05:29 Hinds # 0.9 K/mm3 (0.0-0.8) H 03/29/19 05:29 Eos # 0.0 K/mm3 (0.0-0.4) 03/29/19 05:29 Baso # 0.0 K/mm3 (0.0-0.1) 03/29/19 05:29 Seg Neutrophils % 89.2 % (40.0-70.0) H 03/29/19 05:29 Seg Neutrophils # 11.8 K/mm3 (1.8-7.7) H 03/29/19 05:29 Sodium 137 mmol/L (137-145) 03/29/19 05:29 Potassium 4.2 mmol/L (3.6-5.0) 03/29/19 05:29 Chloride 100.3 mmol/L (98-107) 03/29/19 05:29 Carbon Dioxide 25 mmol/L (22-30) 03/29/19 05:29 Anion Gap 16 mmol/L 03/29/19 05:29 BUN 16 mg/dL (9-20) 03/29/19 05:29 Creatinine 0.8 mg/dL (0.8-1.5) 03/29/19 05:29 Estimated GFR > 60 ml/min 03/29/19 05:29 BUN/Creatinine Ratio 20 % 03/29/19 05:29 Glucose 134 mg/dL (75-100) H 03/29/19 05:29 Lactic Acid 0.70 mmol/L (0.7-2.0) 03/25/19 21:19 Uric Acid 3.2 mg/dL (3.5-7.6) L 03/25/19 17:58 Calcium 8.7 mg/dL (8.4-10.2) 03/29/19 05:29 Magnesium 2.00 mg/dL (1.7-2.3) 03/29/19 05:29 Iron 8 ug/dL (49-181) L 03/28/19 07:21 TIBC 134 mcg/dL (250-450) L 03/28/19 07:21 % Saturation 5.97 % 03/28/19 07:21 Transferrin 131 mg/dl (180-329) L 03/28/19 07:21 Ferritin 370.5 ng/mL (13.0-400.0) 03/28/19 07:21 Total Bilirubin 1.00 mg/dL (0.1-1.2) 03/25/19 17:58 AST 12 units/L (5-40) 03/25/19 17:58 ALT 5 units/L (7-56) L 03/25/19 17:58 Alkaline Phosphatase 62 units/L (35-129) 03/25/19 17:58 C-Reactive Protein 35.70 mg/dL (0.00-1.30) H 03/28/19 07:21 Total Protein 7.1 g/dL (6.3-8.2) 03/25/19 17:58 Albumin 3.6 g/dL (3.9-5) L 03/25/19 17:58 Albumin/Globulin Ratio 1.0 % 03/25/19 17:58 Vitamin B12 334.5 pg/mL (211-911) 03/28/19 07:21 Urine Color Sindi (Yellow) 03/25/19 20:13 Urine Turbidity Slightly-cloudy (Clear) 03/25/19 20:13 Urine pH 5.0 (5.0-7.0) 03/25/19 20:13 Ur Specific [place] 1.020 (1.003-1.030) 03/25/19 20:13 Urine Protein 100 mg/dl mg/dL (Negative) 03/25/19 20:13 Urine Glucose (UA) Neg mg/dL (Negative) 03/25/19 20:13 Urine Ketones 20 mg/dL (Negative) 03/25/19 20:13 Urine Blood Neg (Negative) 03/25/19 20:13 Urine Nitrite Neg (Negative) 03/25/19 20:13 Urine Bilirubin Neg (Negative) 03/25/19 20:13 Urine Urobilinogen 2.0 mg/dL (<2.0) 03/25/19 20:13 Ur Leukocyte Esterase Tr (Negative) 03/25/19 20:13 Urine WBC (Auto) 30.0 /HPF (0.0-6.0) H 03/25/19 20:13 Urine RBC (Auto) 5.0 /HPF (0.0-6.0) 03/25/19 20:13 U Epithel Cells (Auto) < 1.0 /HPF (0-13.0) 03/25/19 20:13 Urine Mucus 3+ /HPF 03/25/19 20:13 Vancomycin Trough 7.2 ug/mL (5.0-20.0) 03/28/19 05:44 Rheumatoid Factor 12 IU/ml (0-13) 03/28/19 07:21 Active Medications - Current Medications Current Medications: Generic Name Dose Route Start Last Admin Trade Name Freq PRN Reason Stop Dose Admin Acetaminophen 650 mg 03/25/19 19:33 03/28/19 00:20 Tylenol PO 650 mg Q4H PRN Administration Pain MILD(1-3)/Fever >100.5/RODRIGUES Acetaminophen/Hydrocodone Bitart 2 each 03/29/19 14:36 [place]legs 10/325 PO Q6H PRN Pain, Moderate (4-6) Docusate Sodium 100 mg 03/25/19 22:00 03/30/19 10:53 Colace PO 100 mg BID ELKIN Administration Enoxaparin Sodium 40 mg 03/26/19 10:00 03/30/19 10:52 Enoxaparin SUB-Q 40 mg QDAY ELKIN Administration Hydromorphone HCl 1 mg 03/29/19 14:37 Dilaudid IV Q3H PRN Pain , Severe (7-10) Methylprednisolone Sodium 100 mls @ 200 mls/hr 03/30/19 10:00 03/30/19 10:52 Succinate 500 mg/ Sodium IV 200 mls/hr Chloride Q24HR ELKIN Administration Vancomycin HCl 1,500 mg/ 530 mls @ 333.333 mls/hr 03/30/19 12:00 03/30/19 12:22 Sodium Chloride IV 333.333 mls/hr Q8H ELKIN Administration Nicotine 14 mg 03/25/19 20:11 Habitrol TD QDAY PRN smoking cessation Ondansetron HCl 4 mg 03/25/19 19:33 03/30/19 07:32 Zofran IV 4 mg Q6H PRN Administration Nausea And Vomiting Pantoprazole Sodium 40 mg 03/29/19 14:33 03/30/19 10:53 Protonix PO 40 mg QDAY ELKIN Administration Sodium Chloride 10 ml 03/25/19 22:00 03/30/19 10:52 Sodium Chloride Flush Syringe 10 Ml IV 10 ml BID ELKIN Administration Sodium Chloride 10 ml 03/25/19 19:33 Sodium Chloride Flush Syringe 10 Ml IV PRN PRN LINE FLUSH Zolpidem Tartrate 10 mg 03/30/19 22:00 Ambien PO QHS ELKIN
[2019-03-30] MEDS ORDERED: methylPREDNISolone Sod Suc 500 MG in SODIUM CHLORIDE 0.9% 100 ML IV ONE (21:00)
[2019-03-30] MEDS ORDERED: ZOLPIDEM 10 MG TAB PO SCH (22:00)
[2019-03-30 22:04] LABS: ANA Screen, IFA Negative (Negative)
[2019-03-31] MEDS: VANCOMYCIN 1,500 MG in SODIUM CHLORIDE 0.9% 500 ML 500 ML IV SCH ×2 (05:36→12:51)
--- NOTE | 2019-03-31 10:11 | Discharge Summary ---
Providers - Providers Date of Admission: 03/25/19 19:08 Attending physician: ROSEMARY MCKEON MD 03/25/19 19:33 Consult to Physician [CONS] Routine Comment: Consulting Provider: NAHUM FARRELL Physician Instructions: Reason For Exam: bilateral lower extremity cellulitis 03/28/19 15:00 Consult to Physician [CONS] Routine Comment: Consulting Provider: FLETCHER GUZMAN Physician Instructions: Reason For Exam: Left ankle effusion for tap Primary care physician: NEWSAGENT Hospitalization Condition: Fair Hospital course: 39-year-old man who presents to the hospital with bilateral foot and leg pain that began after walking in new shoes. Vital signs reviewed. no fevers Lower extremity Dopplers negative for DVT Pseudogout exacerbation polyarthritis, bilat ankle, bilat hands, SIRS Unlikely to be due to infection. HUMBERTO was negative, rheumatoid factor was negative. Etiology is most likely due to pseudogout. Patient received steroids and anti- inflammatory medications and improved. He still continues to have pain and swelling of his left foot. He received crutch training and crutches prior to discharge. UTI ruled out, urine culture negative Macrocytic anemia Due to alcohol abuse, folate levels normal Alcohol abuse Patient was counseled, recommended abstinence from alcohol as alcohol can cause flareups of gout or pseudogout Preventative health counseling performed for 17 minutes Tobacco abuse/dependence Smoking cessation counseling performed for 10 minutes, nicotine patches when necessary DVT prophylaxis with Lovenox Disposition: TO HOME OR SELFCARE Time spent for discharge: 33 mins Core Measure Documentation - Palliative Care Palliative Care/ Comfort Measures: Not Applicable - Core Measures Any of the following diagnoses?: none Exam - Constitutional Vitals: Temp Pulse Resp BP Pulse Ox 98.4 F 69 20 109/65 97 03/31/19 04:25 03/31/19 04:25 03/31/19 04:25 03/31/19 04:25 03/31/19 04:25 General appearance: Present: no acute distress, well-nourished - EENT Eyes: Present: PERRL ENT: hearing intact, clear oral mucosa - Neck Neck: Present: supple, normal ROM - Respiratory Respiratory effort: normal Respiratory: bilateral: CTA - Cardiovascular Heart Sounds: Present: S1 & S2. Absent: rub, click - Extremities Extremities: pulses symmetrical Extremity abnormal: edema (left foot and ankle) Peripheral Pulses: within normal limits - Abdominal General gastrointestinal: Present: soft, non-tender, non-distended, normal bowel sounds Male genitourinary: Present: normal - Integumentary Integumentary: Present: clear, warm, dry - Musculoskeletal Musculoskeletal: gait normal, strength equal bilaterally - Psychiatric Psychiatric: appropriate mood/affect, intact judgment & insight - Neurologic Neurologic: CNII-XII intact, moves all extremities Plan Follow up with: PRIMARY CARE,MD [Primary Care Provider] - 3-5 Days Prescriptions: Nicotine [Habitrol] 14 mg TD QDAY PRN #30 patch PRN Reason: smoking cessation Indomethacin [Indocin] 25 mg PO Q8HR #20 capsule HYDROcodone/APAP 10-325 [[place] 10-325 mg TAB] 2 each PO Q6H PRN #20 tablet PRN Reason: Pain, Moderate (4-6) Prednisone [predniSONE 10 mg (6-Day Pack, 21 Tabs)] 10 mg PO .TAPER #1 tab.ds.pk Other Discharge Orders: Crutches (Amb) Location: None Selected
[2019-03-31] MEDS: DOCUSATE SODIUM 100 MG CAP PO SCH (10:26)
[2019-03-31] MEDS: PANTOPRAZOLE 40 MG TAB PO SCH (10:27)
[2019-03-31] MEDS: ENOXAPARIN 40 MG/0.4 ML INJ SUB-Q SCH (10:28)
[2019-03-31] MEDS ORDERED: COLCHICINE 0.6 MG CAP PO SCH (10:30)
[2019-03-31] MEDS: INDOMETHACIN 25 MG CAP PO SCH ×2 (10:47→18:40)
[2019-03-31 11:29] LABS: BUN/Creatinine Ratio 26; Blood Urea Nitrogen 21 mg/dL (9-20); Calcium 8.4 mg/dL (8.4-10.2); Hemolysis Index 2
--- NOTE | 2019-03-31 13:54 | XRay Report ---
LEFT FOOT 2 VIEWS INDICATION / CLINICAL INFORMATION: left foot pain and swelling COMPARISON: None available. FINDINGS: BONES / JOINT(S): No acute fracture or subluxation. No significant arthritis. SOFT TISSUES: No significant abnormality. ADDITIONAL FINDINGS: None. LEFT ANKLE 2 VIEWS. INDICATION / CLINICAL INFORMATION: left foot pain and swelling COMPARISON: None available. FINDINGS: BONES / JOINT(S): No acute fracture or subluxation. No significant arthritis. SOFT TISSUES: Mild soft tissue swelling greater laterally. ADDITIONAL FINDINGS: None. Signer Name: Arash Rutledge MD Signed: 03/31/2019 1:49 PM Workstation Name: [id number]
--- NOTE | 2019-03-31 13:55 | Progress Note ---
Assessment and Plan Cultures: 03/25 BCx - NGTD 03/25 UCx - negative A/P: 39 yo M no PMHx admitted with bilateral edema and LE pain after visiting the beach. 1. SIRS possible sepsis - present on admission with fevers and tachycardia. Likely secondary to foot/ankle inflammatory process, which may be infective. Will order MRI of the L ankle which is significantly worse and has severe pain on active and passive ROM. Concern for septic arthritis. Continue vancomycin, increase ceftriaxone dose, and added doxycyline. 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 Will also check gonorrhea to r/o disseminated gonococcosis. Recommend ortho consult for possible arthrocentesis. MRI with swelling but no acute focus of infection. Believe this is more likely to be a connective tissue disease than infection. Will start de-escalating antibiotics today. Recs: - Stop vancomycin as remains afebrile. - stopped ceftriaxone to 2g q24h - Stopped doxycycline 100mg bid PO - agree with HUMBERTO and autoimmune titres ordered by primary. RF WNL - leukocytosis likely secondary to steroids. Thank you for the consult, we will continue to follow. Rome Mcmillan MD [facility] ([facility]) M: [phone] O: [phone] F: [phone] Subjective Date of service: 03/31/19 Interval history: Notes persistent L ankle, R index finger, and L wrist swelling and pain. Mild improvement Objective - Exam Narrative Exam: Constitutional: Alert, cooperative. No acute distress Head, Ears, Nose: Normocephalic, atraumatic. External ears, nose normal Eyes: Conjunctivae/corneas clear. No icterus. No ptosis. Neck: Supple, no meningeal signs Oral: dentition fair, no thrush Cardiovascular: S1, S2 normal. Respiratory: Good air entry, clear to auscultation bilaterally GI: Soft, non-tender; bowel sounds normal. No peritoneal signs. Musculoskeletal: b/l LE edema to the high ankle, L > R. Redness, tenderness over L medial malleolus and R 5th toe. painful active and passive ROM of L ankle. Skin: No rash or abscess. L 2nd finger swelling and tenderness, R wrist the same. Hem/Lymphatic: No palpable cervical or supraclavicular nodes. No lymphangitis Psych: Mood ok. Affect normal Neurological: Awake, alert, oriented. No gross abnormality - Constitutional Vitals: Vital Signs Temp Pulse Resp BP Pulse Ox 99.4 F 66 20 118/65 96 03/31/19 12:30 03/31/19 12:30 03/31/19 12:30 03/31/19 12:30 03/31/19 12:30 Temperature -Last 24 Hours Temperature 99.4 F Temperature 98.4 F Temperature 99.1 F Temperature 98.6 F - Labs CBC & Chem 7: 03/29/19 05:29 03/31/19 10:32 Labs: Abnormal lab results 03/31/19 03/31/19 Range/Units 10:32 10:32 BUN 21 H (9-20) mg/dL Glucose 166 H (75-100) mg/dL Vancomycin Trough 23.3 H (5.0-20.0) ug/mL
[2019-03-31 19:02] VITALS: BP 119/71
== END 2019-03-31 20:10 | disposition home or self-care (01) | DRG 554 ==
LOC: ED 13:50 → 3A 19:08 → UNDODISIN 03-29 16:00
PROVIDERS: ADMIT Internal Medicine; ATTEND Internal Medicine
DX: M11.272 Other chondrocalcinosis, left ankle and foot (principal); R65.10 Systemic inflammatory response syndrome (SIRS) of non-infectious origin without acute organ dysfunction; F17.210 Nicotine dependence, cigarettes, uncomplicated; F10.10 Alcohol abuse, uncomplicated; Y90.9 Presence of alcohol in blood, level not specified; M10.9 Gout, unspecified; M11.271 Other chondrocalcinosis, right ankle and foot; D64.9 Anemia, unspecified; M13.872 Other specified arthritis, left ankle and foot; M13.871 Other specified arthritis, right ankle and foot; Z88.0 Allergy status to penicillin; Z71.6 Tobacco abuse counseling
CPT/HCPCS: 36415; 73721; 80048; 80053; 80202; 81001; 82140; 82607; 82728; 82747; 83550; 83735; 84550; 85025; 85027; 86038; 86140; 86160; 86162; 86618; 87040; 87086; 93970; 96365; 96375; 99406; G0378; J0696; J1170; J1650; J1885; J2270; J2405; J2930; J3370; J7030; J7040; J7050; J7512